=== PATIENT | female | born 1975 | race Caucasian/White ===

== ENCOUNTER 2020-07-16 10:10 | Outpatient (REF) | payer MEDICARE, SELFPAY ==
[2020-07-16 11:42] LABS: Alanine Aminotransferase 28 U/L (0-31); Anion Gap 14 (12-20); Aspartate Amino Transferase 23 U/L (5-31); Blood Urea Nitrogen 20 mg/dL (9-16); Calcium 8.2 mg/dL (8.4-10.2); Carbon Dioxide 24 mmol/L (22-29); Chloride 105 mmol/L (96-108); Cholesterol 197 mg/dL; Estimated Glomerular Filt Rate > 60; Glucose Fasting 100 mg/dL (60-99); HDL Cholesterol 59 mg/dL; LDL Cholesterol Calculated 121 mg/dl; Potassium 4.5 mmol/l (3.3-5.1); Sodium 138 mmol/L (135-145); Triglycerides 86 mg/dL
== END 2020-07-16 10:11 | disposition home or self-care (01) ==
LOC: HO.HMGCLDS 10:10
PROVIDERS: PCP Internal Medicine; Visit Provider Internal Medicine
DX: Z00.00 Encounter for general adult medical examination without abnormal findings (principal)
CPT/HCPCS: 80048; 80061; 84450; 84460

== ENCOUNTER 2020-07-23 14:45 | Outpatient (REF) | payer MEDICARE, MEDICAID, SELFPAY ==
[2020-07-29 18:16] LABS: HPV mRNA E6/E7 rflx Not Detected (Not Detected)
== END 2020-07-23 14:46 | disposition home or self-care (01) ==
LOC: HO.LNP 14:45
PROVIDERS: Visit Provider Internal Medicine
DX: I26.99 Other pulmonary embolism without acute cor pulmonale (principal)
CPT/HCPCS: 87624; 87625

== ENCOUNTER 2020-07-27 15:45 | Outpatient (REF) | payer MEDICARE, MEDICAID, SELFPAY | END 2020-07-27 15:46 | disposition home or self-care (01) | LOC: HO.LAB 15:45 | PROVIDERS: Visit Provider Internal Medicine | DX: Z01.419 Encounter for gynecological examination (general) (routine) without abnormal findings (principal) | CPT/HCPCS: 88142 ==

== ENCOUNTER 2021-07-22 09:44 | Outpatient (REF) | payer MEDICARE, MEDICAID, SELFPAY ==
--- NOTE | ~2021-07-22 | MM_ITS ---
EXAMINATION: MM SCREENING DIGITAL BREAST TOMOSYNTHESIS, BILATERAL CLINICAL INFORMATION: Screening. Asymptomatic. The lifetime risk of breast cancer based on the Tyrer-Cuzick Model is 7%. COMPARISON: Mammography: 02/13/2019, 01/25/2018 TECHNIQUE: Digital breast tomosynthesis is performed in both the craniocaudal and mediolateral oblique views along with computer-aided detection (CAD). Synthesized 2D images are generated from the tomosynthesis. FINDINGS: The breasts are heterogeneously dense, which may obscure small masses (ACR BI-RADS breast composition Category c). Parenchymal pattern is similar to prior studies. There is no interval mass or architectural. No abnormal calcifications. The axilla and skin contours are unremarkable. No significant changes. MM/MM tomosynthesis screening BI IMPRESSION: No mammographic evidence of malignancy. ASSESSMENT: BI-RADS 1: Negative RECOMMENDATION: Routine annual mammography screening. This patient's information was entered into a reminder system with a target due date for their next mammogram.
[2021-07-22 10:04] LABS: MANUAL DIFF FLAG NO
[2021-07-22 10:28] LABS: Basophils Absolute Auto 0.1 X10*3/uL (0.0-0.2); Basophils Percent Auto 0.7 % (0-2); Eosinophils Absolute Auto 0.2 X10*3/uL (0.0-0.4); Eosinophils Percent Auto 2.2 % (0-4); Hematocrit 38.1 % (37.0-47.0); Hemoglobin 12.9 g/dl (12.0-16.0); Imm Gran Abs Auto 0.03 X10*3/uL (0.00-0.03); Imm Gran Pct Auto 0.4 % (0.0-0.4); Lymphocytes Absolute Auto 1.5 X10*3/uL (1.2-4.9); Lymphocytes Percent Auto 21.6 % (20-40); Mean Corpuscular HGB Conc 33.9 g/dl (31.0-35.0); Mean Corpuscular Hemoglobin 31.1 pg (27.0-33.0); Mean Corpuscular Volume 91.8 fL (80.0-98.0); Monocytes Absolute Auto 0.5 X10*3/uL (0.1-1.2); Monocytes Percent Auto 6.9 % (2-11); Neutrophils Absolute Auto 4.7 x10*3/uL (2.0-8.3); Neutrophils Percent Auto 68.2 % (45-73); Platelet Count 280 X10*3/uL (160-400); Red Blood Count 4.15 X10*6/uL (4.20-5.50); White Blood Count 6.9 X10*3/uL (4.8-10.8)
[2021-07-22 10:54] LABS: Alanine Aminotransferase 18 U/L (0-31); Albumin Level 4.5 g/dL (3.5-5.0); Alkaline Phosphatase 65 U/L (39-117); Anion Gap 11 (12-20); Aspartate Amino Transferase 16 U/L (5-31); Bilirubin Total 0.3 mg/dL (0.0-1.0); Blood Urea Nitrogen 20 mg/dL (9-16); Calcium 9.1 mg/dL (8.4-10.2); Carbon Dioxide 24 mmol/L (22-29); Chloride 107 mmol/L (96-108); Cholesterol 222 mg/dL; Estimated Glomerular Filt Rate > 60; Glucose Random 110 mg/dL (60-115); HDL Cholesterol 52 mg/dL; LDL Cholesterol Calculated 136 mg/dl; Potassium 4.4 mmol/L (3.3-5.1); Sodium 138 mmol/L (135-145); Total Protein 7.1 g/dL (6.5-8.0); Triglycerides 174 mg/dL
[2021-07-22 11:14] LABS: Thyroid Stimulating Hormone 1.13 uIU/mL (0.32-4.0)
== END 2021-07-22 09:45 | disposition home or self-care (01) ==
LOC: HO.MAMMO 09:44
PROVIDERS: PCP Internal Medicine; Visit Provider Internal Medicine
DX: Z00.00 Encounter for general adult medical examination without abnormal findings (principal); Z12.31 Encounter for screening mammogram for malignant neoplasm of breast; J30.0 Vasomotor rhinitis; R07.89 Other chest pain; Z72.0 Tobacco use
CPT/HCPCS: 36415; 77063; 77067; 80053; 80061; 84443; 85025

== ENCOUNTER → 2021-10-17 13:17 | Outpatient (BNVA) | payer MEDICARE, MEDICAID, SELFPAY | PROVIDERS: PCP Internal Medicine; Visit Provider Internal Medicine Cardiovascular Disease ==

== ENCOUNTER 2022-03-09 11:26 | Outpatient (REF) | payer MEDICARE, MEDICAID, SELFPAY ==
[2022-03-09 12:02] LABS: COVID-19 Test Negative (Negative); IDNOW Serial# 08D9AD1C
== END 2022-03-09 11:27 | disposition home or self-care (01) ==
LOC: HO.LAB 11:26
PROVIDERS: Visit Provider Internal Medicine
DX: Z20.822 Contact with and (suspected) exposure to COVID-19 (principal)
CPT/HCPCS: 87635; C9803

== ENCOUNTER 2022-04-23 04:36 | Emergency (ER) | payer MEDICARE, MEDICAID, SELFPAY ==
[2022-04-23 04:54] VITALS: BMI 31.3
[2022-04-23] MEDS: LORazepam 1 MG TABLET 2 MG PO (05:12)
[2022-04-23] MEDS: OLANZapine 10 MG TABLET PO (05:13)
[2022-04-23 07:08] LABS: Appearance Urine CLOUDY; Color Urine YELLOW; Glucose Urine UA NEG (NEG); Leukocyte Esterase Urine NEG (NEG); Nitrite Urine NEG (NEG); PH 5.5 (5.0-8.0); Specific Gravity - Urine 1.025 (1.005-1.025); UACC Culture Trigger NO; Urine Blood 1+ (NEG); Urine Ketones 15 MG/DL (NEG); Urine Protein TRACE MG/DL (NEG-TRACE)
[2022-04-23 07:09] LABS: UPreg QC Valid YES; Urine Pregnancy NEGATIVE (NEGATIVE)
[2022-04-23 07:19] LABS: Amorphous Sediment Urine 1+ /LPF; Bacteria Urine 1+ /LPF; Mucus Urine TRACE /LPF; Squamous Epithelial Cell Urine 2+ /LPF; WBC Urine 0-2 /HPF (0-4)
[2022-04-23 07:20] LABS: Amphetamine Screen Urine Not Detected (Not Detect); Barbiturates, Urine Not Detected (Not Detect); Benzodiazepines Screen Urine Not Detected (Not Detect); Cannabinoid Screen Urine Not Detected (Not Detect); Cocaine Screen Urine POSITIVE (Not Detect); Fentanyl, urine Not Detected (Not Detect); Hyaline Casts Urine 0-2 /LPF; Opiate Screen Urine Not Detected (Not Detect); Phencyclidine Screen Urine Not Detected (Not Detect)
[2022-04-23 07:25] LABS: COVID-19 Test Negative (Negative)
--- NOTE | 2022-04-23 08:32 | PC.NURSE ---
Patient was tearful at the time arrival, inconsolable, non compliant with changeover, provider ordered Ativan 2 mg PO and Olanzapine 10 mg PO /administered at 0513 with positive effect, patient currently in bed appears sleeping, no distress observed/reported, compliant with change control manager, urine sample provided, [facility] referral completed/confirmed/pending ETA, med rec completed/confirmed/pending ETA, will continue to monitor.
--- NOTE | 2022-04-23 09:12 | ED_ITS ---
HPI - Psych General Chief Complaint: Psychiatric Symptoms Stated Complaint: SI Time Seen by Provider: 04/23/22 05:04 Source: patient Mode of arrival: ambulatory Limitations: no limitations History of Present Illness HPI Narrative: 46-year-old female who presents emergency department for evaluation of suicidal ideation, depression and emotional distress. Patient was extremely agitated and tearful on presentation and difficult to get a history from. The patient states that she was at a bar to meet her boyfriend and was drinking alcohol prior to the boyfriend arrival. Apparently she got in an argument with the boyfriend and states that she scratched his face became very upset. She states that she is very tired and she is tired of living. She told me that everybody was out to get her and that everybody was mean to her. She told me that she wanted to , but did not have a plan. The patient was initially seen by the triage nurse and then wanted to leave the emergency department after making suicidal statements. I was able to convince the patient to walk back to the psychiatric unit. The patient lives very tearful and continued to want to leave therefore she was medicated with Zyprexa 10 mg orally and Ativan 2 mg orally. MD complaint: suicidal ideation, feels depressed, anxiety and alcohol abuse Onset (ago): hour(s) (3) Duration: constant History of same: Yes Relieving factors: none Exacerbating factors: alcohol Associated psychiatric symptoms: depression, suicidal ideation, racing thoughts and delusions (Paranoid) Associated symptoms: denies other symptoms Treatments prior to arrival: none If self harm: admits thoughts of self harm Related Data Home Medications Medication Instructions Recorded Confirmed omeprazole 20 mg capsule,delayed 20 mg PO DAILY 07/23/20 04/23/22 release aripiprazole 5 mg tablet 1 tab PO DAILY 04/23/22 04/23/22 duloxetine 30 mg capsule,delayed 1 cap PO DAILY 04/23/22 04/23/22 release lorazepam 0.5 mg tablet 1 tab PO DAILY PRN anxiety 04/23/22 04/23/22 oxcarbazepine 600 mg tablet 1 tab PO BID 04/23/22 04/23/22 trazodone 100 mg tablet 1 tab PO BEDTIME 04/23/22 04/23/22 Previous Rx's Medication Instructions Recorded albuterol sulfate 90 mcg/actuation 2 puff inhalation Q6H PRN 12/21/20 aerosol inhaler (Ventolin HFA) shortness of breath or wheezing #8.5 grams Allergies Allergy/AdvReac Type Severity Reaction Status Date / Time No Known Allergies Allergy Verified 10/17/21 14:01 [facility] Past Medical History [facility] Narrative: Social history: The patient does smoke cigarettes. Patient does drink alcohol missed drinking alcohol this evening. She smokes 1 pack of cigarettes per day times many years. She states that she is currently not using drugs but has used crack cocaine in the past. Medical History Bipolar disorder GERD (gastroesophageal reflux disease) Mild intermittent asthma Obesity (BMI 30.0-34.9) Surgical History H/O tubal ligation Family History Family History Father No problems noted. Mother Parkinson disease Son No problems noted. Son No problems noted. Sister No problems noted. Brother No problems noted. Brother No problems noted. Brother No problems noted. Brother No problems noted. Brother No problems noted. Brother No problems noted. Maternal Aunt Diabetes mellitus Social History Social History Alcohol intake: current Physical Exam Vital Signs: Vital Signs: BMI result Body Mass Index 31.3 Const: Other: Patient is very emotional, she is tearful, she has very pressured speech, she appears to be intoxicated. HEENT: Head: Yes normal to inspection, Yes normocephalic and Yes atraumatic Ears: external ears normal General nose exam: Normal external nose present Face and sinus: Yes normal facial exam Mouth: Normal oral and palatal mucosa present Throat: Yes posterior oropharynx normal Eyes: General: appearance normal, both eyes and all related structures Pupils: Equal, round and reactive pupils present Neck: Neck: Yes normal visual inspection, Yes no lymphadenopathy, Yes trachea midline and Yes supple Chest: Chest palpation & inspection: normal inspection of the chest and normal palpation of entire chest wall Resp: Effort & Inspection: normal respiratory effort and able to speak in complete sentences Auscultation: clear to auscultation bilaterally Cardio: Rate: regular rate Rhythm: regular rhythm Heart sounds: S1 normal heart sound present, S2 normal heart sound present and no murmurs GI: Inspection: Yes normal to inspection Palpation (GI): Soft to palpation, nontender and no guarding Auscultation: normal bowel sounds : General: Yes no CVA tenderness Back/Spine/Pelvis: Back: no CVA tenderness Skin: General skin exam: no rashes or lesions noted Neuro: Cranial nerves: Yes CN's II-XII intact bilaterally and Yes Equal, round and reactive pupils present Cognition (Neuro): normal cognition Motor exam (neuro): 5/5 motor strength present throughout Extrem: General: Yes normal to inspection Psych: Appearance: grossly normal Affect: Labile affect present Attitude: Guarded attititude/behavior present Thought process: Racing thoughts present Thought content: Suicidality present Insight: Poor insight present (Psych) Judgement: Poor judgement present (Psych) Course Course Course Narrative: 46-year-old female who presents emergency department for evaluation of suicidal ideation, depression, paranoid ideation and she states she was drinking alcohol this evening and appears to be intoxicated. The patient did make suicidal statements therefore she was placed on a Section 12. The patient was also very agitated and was treated with Zyprexa 10 mg orally and Ativan 2 mg orally. I did order a CBC, CMP, ETOH level, COVID-19 urinalysis, urine test and urine drug screen. 0921: COVID-19 was negative. Urine drug screen was positive for cocaine. Urinalysis revealed 1+ blood, microscopic revealed 1-4 RBCs, 0-2 WBCs. test was negative. Patient has not had her blood drawn yet. The patient did have a good effect from the oral Zyprexa and Ativan and is resting comfortably. The patient will be turned over to my colleague, Dr. Paniagua. [facility] - Psych Lab Data Labs: Lab Results 04/23/22 04/23/22 04/23/22 Range/Units 06:56 06:56 06:56 Urine Color YELLOW Urine Appearance CLOUDY Urine pH 5.5 (5.0-8.0) Ur Specific [place] 1.025 (1.005-1.025) Urine Protein TRACE (NEG-TRACE) MG/DL Urine Glucose (UA) NEG (NEG) MG/DL Urine Ketones 15 (NEG) MG/DL Urine Blood 1+ H (NEG) Urine Nitrite NEG (NEG) Ur Leukocyte Esterase NEG (NEG) Urine RBC 1-4 (0) /HPF Urine WBC 0-2 (0-4) /HPF Ur Squamous Epith Cells 2+ /LPF Amorphous Sediment 1+ /LPF Urine Bacteria 1+ /LPF Hyaline Casts 0-2 /LPF Urine Mucus TRACE /LPF Urine Test NEGATIVE (NEGATIVE) Urine Opiates Screen Not Detected (Not Detect) Urine Fentanyl Screen Not Detected (Not Detect) Ur Barbiturates Screen Not Detected (Not Detect) Ur Phencyclidine Scrn Not Detected (Not Detect) Ur Amphetamines Screen Not Detected (Not Detect) U Benzodiazepines Scrn Not Detected (Not Detect) Urine Cocaine Screen POSITIVE H (Not Detect) U Marijuana (THC) Screen Not Detected (Not Detect) COVID-19 (PAMELA) (Negative) COVID-AddonTV 04/23/22 Range/Units 06:57 Urine Color Urine Appearance Urine pH (5.0-8.0) Ur Specific [place] (1.005-1.025) Urine Protein (NEG-TRACE) MG/DL Urine Glucose (UA) (NEG) MG/DL Urine Ketones (NEG) MG/DL Urine Blood (NEG) Urine Nitrite (NEG) Ur Leukocyte Esterase (NEG) Urine RBC (0) /HPF Urine WBC (0-4) /HPF Ur Squamous Epith Cells /LPF Amorphous Sediment /LPF Urine Bacteria /LPF Hyaline Casts /LPF Urine Mucus /LPF Urine Test (NEGATIVE) Urine Opiates Screen (Not Detect) Urine Fentanyl Screen (Not Detect) Ur Barbiturates Screen (Not Detect) Ur Phencyclidine Scrn (Not Detect) Ur Amphetamines Screen (Not Detect) U Benzodiazepines Scrn (Not Detect) Urine Cocaine Screen (Not Detect) U Marijuana (THC) Screen (Not Detect) COVID-19 (PAMELA) Negative (Negative) COVID-AddonTV See Note Discharge Plan Discharge Clinical Impression: Suicidal ideation, Alcohol intoxication, Cocaine use Patient Disposition: Still a Patient Prescriptions: No Action albuterol sulfate [Ventolin HFA] 90 mcg/actuation HFA aerosol inhaler 2 puff inhalation Q6H PRN (Reason: shortness of breath or wheezing) Qty: 8.5 2RF lorazepam 0.5 mg tablet 1 tab PO DAILY PRN (Reason: anxiety) trazodone 100 mg tablet 1 tab PO BEDTIME oxcarbazepine 600 mg tablet 1 tab PO BID aripiprazole 5 mg tablet 1 tab PO DAILY duloxetine 30 mg capsule,delayed release(DR/EC) 1 cap PO DAILY omeprazole 20 mg capsule,delayed release(DR/EC) 20 mg PO DAILY
[2022-04-23 11:41] LABS: Hematocrit 40.2 % (37.0-47.0); Hemoglobin 13.2 g/dl (12.0-16.0); Mean Corpuscular HGB Conc 32.8 g/dl (31.0-35.0); Mean Corpuscular Hemoglobin 30.3 pg (27.0-33.0); Mean Corpuscular Volume 92.4 fL (80.0-98.0); Mean Platelet Volume 9.5 fL (9.4-12.3); Platelet Count 257 X10*3/uL (160-400); Red Blood Count 4.35 X10*6/uL (4.20-5.50); Red Cell Distribution Width 12.6 % (11.0-16.0)
[2022-04-23 11:42] LABS: Basophils Absolute Auto 0.1 X10*3/uL (0.0-0.2); Eosinophils Absolute Auto 0.4 X10*3/uL (0.0-0.4); Eosinophils Percent Auto 4.9 % (0-4); Hematocrit 39.8 % (37.0-47.0); Hemoglobin 13.1 g/dl (12.0-16.0); Imm Gran Abs Auto 0.03 X10*3/uL (0.00-0.03); Imm Gran Pct Auto 0.4 % (0.0-0.4); Lymphocytes Absolute Auto 2.2 X10*3/uL (1.2-4.9); Lymphocytes Percent Auto 28.2 % (20-40); MANUAL DIFF FLAG NO; Mean Corpuscular HGB Conc 32.9 g/dl (31.0-35.0); Mean Corpuscular Hemoglobin 30.8 pg (27.0-33.0); Mean Corpuscular Volume 93.6 fL (80.0-98.0); Mean Platelet Volume 9.5 fL (9.4-12.3); Monocytes Absolute Auto 0.6 X10*3/uL (0.1-1.2); Monocytes Percent Auto 7.5 % (2-11); Neutrophils Absolute Auto 4.4 x10*3/uL (2.0-8.3); Platelet Count 267 X10*3/uL (160-400); Red Blood Count 4.25 X10*6/uL (4.20-5.50); Red Cell Distribution Width 12.7 % (11.0-16.0); White Blood Count 7.6 X10*3/uL (4.8-10.8)
[2022-04-23 11:52] LABS: Ethanol 92 mg/dL
[2022-04-23 11:58] LABS: Alanine Aminotransferase 128 U/L (0-31); Albumin Level 4.5 g/dL (3.5-5.0); Alkaline Phosphatase 78 U/L (39-117); Anion Gap 17 (12-20); Aspartate Amino Transferase 185 U/L (5-31); Bilirubin Total 0.3 mg/dL (0.0-1.0); Blood Urea Nitrogen 10 mg/dL (9-16); Calcium 8.8 mg/dL (8.4-10.2); Carbon Dioxide 24 mmol/L (22-29); Chloride 103 mmol/L (96-108); Creatinine Clr Calc Pharmacy 98.3; Estimated Glomerular Filt Rate > 60; Glucose Random 63 mg/dL (60-115); Potassium 4.1 mmol/L (3.3-5.1); Sodium 140 mmol/L (135-145); Total Protein 7.4 g/dL (6.5-8.0)
[2022-04-23 14:26] VITALS: BP 111/59; PULSE 92; RESP 16; TEMP 36.8; O2SAT 97
[2022-04-23] MEDS: LORazepam 0.5 MG TABLET PO (15:48)
[2022-04-23] MEDS: DULoxetine HCl 30 MG CAPSULE.DR PO (15:49)
[2022-04-23] MEDS: ARIPiprazole 5 MG TABLET PO (15:50)
--- NOTE | 2022-04-23 16:06 | MHC.CARE ---
CARE team met with pt at the request of the ED attending physician for a 46 year old female who arrived to the ED early this morning under the influence, agitated, and endorsing passive suicidal ideation secondary to interpersonal stressors stemming from a bad night out at the bar. Pt had a BAL of 92 and tested positive for cocaine after arriving, and was heavily medicated this morning due to her level of agitation. [facility] attempted to meet with her for evaluation however she was not able to be assessed at that time due to her level of sedation from the medications. Pt was seen in the milieu of the [facility]. She was alert and oriented, appeared older than her stated age, and engaged easily with this typewriter operator automatic. She denied experiencing any thoughts of suicide and reported that she had been upset the night before because she thought that her sister had tried to kiss her boyfriend, whom she has been with for 13 years. She shared that she knows that the alcohol was a big reason why she became so upset and that she came to the hospital because she wanted help, specifically that she felt that she needed someone to take care of her at that time. She reported that she lives with her boyfriend and that she wants to go home to their birds and her houseplants. She has a therapy appointment this 04/27/22 and her an appointment with her psychiatrist in May. Recommendation is for discharge home and follow up with her outpatient providers. Yasmani Paniagua MD is in agreement with plan of care.
== END 2022-04-23 16:20 | disposition home or self-care (01) ==
LOC: HO.ED 16:13
PROVIDERS: Emergency Provider Emergency Medicine Emergency Medical Services
DX: R45.851 Suicidal ideations (principal); F33.1 Major depressive disorder, recurrent, moderate; F10.129 Alcohol abuse with intoxication, unspecified; Y90.8 Blood alcohol level of 240 mg/100 ml or more; F14.10 Cocaine abuse, uncomplicated; Z79.899 Other long term (current) drug therapy; Z20.822 Contact with and (suspected) exposure to COVID-19
CPT/HCPCS: 36415; 80053; 80307; 81001; 81025; 82077; 85025; 85027; 87635; 99284

== ENCOUNTER 2022-08-08 13:58 | Outpatient (REF) | payer MEDICARE, MEDICAID, SELFPAY ==
[2022-08-08 14:20] LABS: MANUAL DIFF FLAG NO
[2022-08-08 14:46] LABS: Basophils Percent Auto 0.6 % (0-2); Eosinophils Absolute Auto 0.2 X10*3/uL (0.0-0.4); Eosinophils Percent Auto 2.5 % (0-4); Hematocrit 37.6 % (37.0-47.0); Hemoglobin 12.3 g/dl (12.0-16.0); Imm Gran Abs Auto 0.02 X10*3/uL (0.00-0.03); Imm Gran Pct Auto 0.3 % (0.0-0.4); Lymphocytes Absolute Auto 1.4 X10*3/uL (1.2-4.9); Lymphocytes Percent Auto 20.2 % (20-40); Mean Corpuscular HGB Conc 32.7 g/dl (31.0-35.0); Mean Corpuscular Hemoglobin 29.9 pg (27.0-33.0); Mean Corpuscular Volume 91.5 fL (80.0-98.0); Mean Platelet Volume 10.3 fL (9.4-12.3); Monocytes Absolute Auto 0.5 X10*3/uL (0.1-1.2); Monocytes Percent Auto 8.1 % (2-11); Neutrophils Absolute Auto 4.6 x10*3/uL (2.0-8.3); Neutrophils Percent Auto 68.3 % (45-73); Platelet Count 280 X10*3/uL (160-400); Red Blood Count 4.11 X10*6/uL (4.20-5.50); Red Cell Distribution Width 11.8 % (11.0-16.0); White Blood Count 6.7 X10*3/uL (4.8-10.8)
[2022-08-08 15:54] LABS: Alanine Aminotransferase 23 U/L (0-31); Albumin Level 4.3 g/dL (3.5-5.0); Alkaline Phosphatase 78 U/L (39-117); Anion Gap 13 (12-20); Aspartate Amino Transferase 22 U/L (5-31); Bilirubin Total 0.3 mg/dL (0.0-1.0); Blood Urea Nitrogen 10 mg/dL (9-16); Calcium 9.8 mg/dL (8.4-10.2); Carbon Dioxide 23 mmol/L (22-29); Chloride 106 mmol/L (96-108); Cholesterol 206 mg/dL; Estimated Glomerular Filt Rate > 60; Glucose Random 89 mg/dL (60-115); HDL Cholesterol 63 mg/dL; LDL Cholesterol Calculated 98 mg/dl; Potassium 4.3 mmol/L (3.3-5.1); Sodium 138 mmol/L (135-145); Thyroid Stimulating Hormone 1.43 uIU/mL (0.32-4.0); Total Protein 6.9 g/dL (6.5-8.0); Triglycerides 226 mg/dL
== END 2022-08-08 13:59 | disposition home or self-care (01) ==
LOC: HO.LAB 13:58
PROVIDERS: PCP Internal Medicine; Visit Provider Internal Medicine
DX: Z00.00 Encounter for general adult medical examination without abnormal findings (principal); F20.1 Disorganized schizophrenia; K21.9 Gastro-esophageal reflux disease without esophagitis; L65.8 Other specified nonscarring hair loss; Z72.0 Tobacco use
CPT/HCPCS: 36415; 80053; 80061; 84443; 85025

== ENCOUNTER 2022-08-21 13:49 | Outpatient (REF) | payer MEDICARE, MEDICAID, SELFPAY ==
[2022-08-21 14:31] LABS: COVID-19 Test Negative (Negative); IDNOW Serial# 55D5AD1C
== END 2022-08-21 13:50 | disposition home or self-care (01) ==
LOC: HO.LAB 13:49
PROVIDERS: Visit Provider Internal Medicine
DX: Z20.822 Contact with and (suspected) exposure to COVID-19 (principal)
CPT/HCPCS: 87635; C9803

== ENCOUNTER 2022-09-29 13:55 | Outpatient (REF) | payer MEDICARE, MEDICAID, SELFPAY ==
--- NOTE | ~2022-09-29 | MM_ITS ---
EXAMINATION: MM SCREENING DIGITAL BREAST TOMOSYNTHESIS, BILATERAL CLINICAL INFORMATION: Screening. Asymptomatic. The lifetime risk of breast cancer based on the Tyrer-Cuzick Model is 8%. COMPARISON: Mammography: 07/22/2021, 02/13/2019, 01/25/2018 TECHNIQUE: Digital breast tomosynthesis is performed in both the craniocaudal and mediolateral oblique views along with computer-aided detection (CAD). Synthesized 2D images are generated from the tomosynthesis. FINDINGS: The breasts are heterogeneously dense, which may obscure small masses (ACR BI-RADS breast composition Category c). Parenchymal pattern is similar to prior studies. There is no developing density or architectural abnormality. There are no significant masses, abnormal calcifications, or other abnormalities. The axilla and skin contours are unremarkable. No significant changes. MM/MM tomosynthesis screening BI IMPRESSION: No mammographic evidence of malignancy. ASSESSMENT: BI-RADS 1: Negative RECOMMENDATION: Routine annual mammography screening. This patient's information was entered into a reminder system with a target due date for their next mammogram.
== END 2022-09-29 13:56 | disposition home or self-care (01) ==
LOC: HO.MAMMO 13:55
PROVIDERS: PCP Internal Medicine; Visit Provider Internal Medicine
DX: Z12.31 Encounter for screening mammogram for malignant neoplasm of breast (principal)
CPT/HCPCS: 77063; 77067

== ENCOUNTER 2022-12-21 11:24 | Outpatient (REF) | payer OTHER, MEDICAID, SELFPAY ==
[2022-12-21 11:44] LABS: MANUAL DIFF FLAG NO
[2022-12-21 12:23] LABS: Basophils Absolute Auto 0.1 X10*3/uL (0.0-0.2); Basophils Percent Auto 0.7 % (0-2); Eosinophils Absolute Auto 0.2 X10*3/uL (0.0-0.4); Eosinophils Percent Auto 2.1 % (0-4); Hematocrit 39.9 % (37.0-47.0); Hemoglobin 13.1 g/dl (12.0-16.0); Imm Gran Abs Auto 0.05 X10*3/uL (0.00-0.03); Imm Gran Pct Auto 0.7 % (0.0-0.4); Lymphocytes Absolute Auto 1.4 X10*3/uL (1.2-4.9); Lymphocytes Percent Auto 20.3 % (20-40); Mean Corpuscular HGB Conc 32.8 g/dl (31.0-35.0); Mean Corpuscular Hemoglobin 29.9 pg (27.0-33.0); Mean Corpuscular Volume 91.1 fL (80.0-98.0); Monocytes Absolute Auto 0.6 X10*3/uL (0.1-1.2); Monocytes Percent Auto 8.8 % (2-11); Neutrophils Absolute Auto 4.8 x10*3/uL (2.0-8.3); Neutrophils Percent Auto 67.4 % (45-73); Platelet Count 283 X10*3/uL (160-400); Red Blood Count 4.38 X10*6/uL (4.20-5.50); Red Cell Distribution Width 12.3 % (11.0-16.0); White Blood Count 7.1 X10*3/uL (4.8-10.8)
[2022-12-21 13:02] LABS: Cholesterol 215 mg/dL; HDL Cholesterol 61 mg/dL; LDL Cholesterol Calculated 125 mg/dl; Triglycerides 147 mg/dL
[2022-12-21 13:19] LABS: Thyroid Stimulating Hormone 1.79 uIU/mL (0.32-4.0)
== END 2022-12-21 11:25 | disposition home or self-care (01) ==
LOC: HO.LAB 11:24
PROVIDERS: PCP Internal Medicine; Visit Provider Internal Medicine
DX: Z00.00 Encounter for general adult medical examination without abnormal findings (principal); F20.1 Disorganized schizophrenia; K21.9 Gastro-esophageal reflux disease without esophagitis; L65.8 Other specified nonscarring hair loss; Z72.0 Tobacco use
CPT/HCPCS: 36415; 80061; 84443; 85025

== ENCOUNTER 2023-08-02 14:19 | Outpatient (REF) | payer OTHER, MEDICAID, SELFPAY ==
[2023-08-02 14:33] LABS: MANUAL DIFF FLAG NO
[2023-08-02 14:50] LABS: Basophils Absolute Auto 0.1 X10*3/uL (0.0-0.2); Eosinophils Absolute Auto 0.2 X10*3/uL (0.0-0.4); Hematocrit 40.8 % (37.0-47.0); Hemoglobin 13.2 g/dl (12.0-16.0); Imm Gran Abs Auto 0.04 X10*3/uL (0.00-0.03); Imm Gran Pct Auto 0.7 % (0.0-0.4); Lymphocytes Absolute Auto 1.2 X10*3/uL (1.2-4.9); Lymphocytes Percent Auto 20.5 % (20-40); Mean Corpuscular HGB Conc 32.4 g/dl (31.0-35.0); Mean Corpuscular Hemoglobin 30.8 pg (27.0-33.0); Mean Corpuscular Volume 95.3 fL (80.0-98.0); Monocytes Absolute Auto 0.5 X10*3/uL (0.1-1.2); Monocytes Percent Auto 8.4 % (2-11); Neutrophils Percent Auto 66.4 % (45-73); Platelet Count 254 X10*3/uL (160-400); Red Blood Count 4.28 X10*6/uL (4.20-5.50); Red Cell Distribution Width 12.4 % (11.0-16.0)
[2023-08-02 15:10] LABS: Alanine Aminotransferase 209 U/L (0-31); Albumin Level 4.4 g/dL (3.5-5.0); Alkaline Phosphatase 111 U/L (39-117); Anion Gap 11 (12-20); Aspartate Amino Transferase 113 U/L (5-31); Bilirubin Total 0.3 mg/dL (0.0-1.0); Blood Urea Nitrogen 10 mg/dL (9-16); Calcium 9.6 mg/dL (8.4-10.2); Carbon Dioxide 28 mmol/L (22-29); Chloride 105 mmol/L (96-108); Cholesterol 225 mg/dL (<200); Estimated Glomerular Filt Rate > 60; Glucose Random 111 mg/dL (60-115); HDL Cholesterol 68 mg/dL (>40); LDL Cholesterol Calculated 128 mg/dL (<100); Potassium 4.1 mmol/L (3.3-5.1); Sodium 140 mmol/L (135-145); Total Protein 7.5 g/dL (6.5-8.0); Triglycerides 145 mg/dL (<150)
== END 2023-08-02 14:20 | disposition home or self-care (01) ==
LOC: HO.LAB 14:19
PROVIDERS: PCP Internal Medicine; Visit Provider Internal Medicine
DX: Z00.00 Encounter for general adult medical examination without abnormal findings (principal); R13.10 Dysphagia, unspecified; R10.13 Epigastric pain; I10 Essential (primary) hypertension; F10.19 Alcohol abuse with unspecified alcohol-induced disorder; E78.2 Mixed hyperlipidemia; Z72.0 Tobacco use
CPT/HCPCS: 36415; 80053; 80061; 85025

== ENCOUNTER 2023-11-01 12:30 | Outpatient (REF) | payer OTHER, MEDICAID, SELFPAY | END 2023-11-01 12:31 | disposition home or self-care (01) | LOC: HO.MAMMO 12:30 | PROVIDERS: PCP Internal Medicine; Visit Provider Internal Medicine | DX: Z12.31 Encounter for screening mammogram for malignant neoplasm of breast (principal) | CPT/HCPCS: 77063; 77067 ==

== ENCOUNTER → 2023-11-01 13:00 | Outpatient (BNV) | payer OTHER, MEDICAID, SELFPAY | PROVIDERS: PCP Internal Medicine; Visit Provider Radiology Diagnostic Radiology | DX: Z12.31 Encounter for screening mammogram for malignant neoplasm of breast (principal) | CPT/HCPCS: 77063; 77067 ==

== ENCOUNTER 2024-01-21 14:14 | Emergency (ER) | payer OTHER, MEDICAID, SELFPAY ==
--- NOTE | 2024-01-21 | ECG_ITS ---
Test Reason : CHEST TIARA Blood Pressure : / mmHG Vent. Rate : 071 BPM Atrial Rate : 071 BPM P-R Int : 120 ms QRS Dur : 082 ms QT Int : 394 ms P-R-T Axes : 032 038 027 degrees QTc Int : 428 ms Normal sinus rhythm Cannot rule out Anterior infarct (cited on or before 28-FEB-2019) Abnormal ECG When compared with ECG of 28-FEB-2019 11:07, Questionable change in initial forces of Anterior leads Referred By: Generic ED Physician Electronically Signed By:Livan Mills
== END 2024-01-21 14:49 | disposition left against medical advice (07) ==
PROVIDERS: Emergency Provider Emergency Medicine; PCP Internal Medicine
DX: R07.9 Chest pain, unspecified (principal)
CPT/HCPCS: 93005; 99282; 99283

== ENCOUNTER → 2024-01-21 14:20 | Outpatient (BNV) | payer OTHER, MEDICAID, SELFPAY | PROVIDERS: Emergency Provider Emergency Medicine; PCP Internal Medicine; Visit Provider Internal Medicine Cardiovascular Disease | DX: R07.9 Chest pain, unspecified (principal) | CPT/HCPCS: 93010 ==

== ENCOUNTER 2024-01-30 12:16 | Outpatient (REF) | payer OTHER, SELFPAY ==
--- NOTE | ~2024-01-30 | US_ITS ---
EXAMINATION: US COMPLETE ABDOMEN WITH LIVER ELASTOGRAPHY CLINICAL INFORMATION: Elevated liver function test; alcoholic liver damage. COMPARISON: CT abdomen and pelvis dated 05/18/2015; abdominal ultrasound dated 03/05/2009. TECHNIQUE: Real-time imaging of the abdominal viscera. Noninvasive ultrasound liver fibrosis assessment is performed using Francisco ElastPQ point quantification shear wave elastography (2D-SWE) with a C5-2 MHz transducer. Multiple elastography samples are obtained. FINDINGS: PANCREAS: Normal. The visualized pancreatic head and body are normal in appearance. The remainder of the pancreas is obscured from visualization by the overlying bowel gas. ABDOMINAL AORTA: The proximal, middle, and distal aortic segments are normal in caliber. INFERIOR VENA CAVA: Visualized portions are normal. LIVER: The liver demonstrates normal size, contour and increased echogenicity. No focal lesion or intrahepatic biliary duct dilatation. The right lobe measures 15.5 cm in length. The left lobe measures 12.1 cm in length. Portal flow is towards the liver (hepatopetal). Shear wave liver elastography median stiffness is 1.47 m/s (reference: normal median stiffness is 1.3 m/s or less). IQR/median stiffness to assess sampling precision is 0.16 (reference: good quality data set is IQR/median stiffness of 0.15 or less). GALLBLADDER: Normal. The gallbladder is physiologically distended without evidence of stones, sludge, polyps, wall thickening or pericholecystic fluid. COMMON BILE DUCT: Normal in caliber measuring 0.5 cm in diameter. RIGHT KIDNEY: Normal. No hydronephrosis. No renal calculi or focal parenchymal lesions. The kidney measures 9.7 cm in maximum dimension. LEFT KIDNEY: Normal. No hydronephrosis. No renal calculi or focal parenchymal lesions. The kidney measures 9.2 cm in maximum dimension. SPLEEN: Normal. The spleen measures 8.9 cm in maximum dimension. FREE FLUID: None. US/US abdomen comp w elastography IMPRESSION: 1. There is generalized increase in hepatic echotexture, consistent with fatty infiltration or hepatocellular disease. Please correlate clinically. No focal hepatic mass or intrahepatic biliary dilatation is seen. 2. Liver elastography: Although measurements appear to rule out compensated advanced chronic liver disease, there is statistical variability of the sampling which decreases accuracy. REFERENCE: Society of Radiologists in Ultrasound Liver Stiffness Thresholds (2020): LIVER STIFFNESS THRESHOLDS: *Liver Stiffness equal or less than 1.3 m/s: High probability of being normal. *Liver Stiffness less than 1.7 m/s: In the absence of other known clinical signs, rules out compensated advanced chronic liver disease. *Liver Stiffness 1.7-2.1 m/s: Suggestive of compensated advanced chronic liver disease but need further test for confirmation. *Liver Stiffness over 2.1 m/s: Rules in compensated advanced chronic liver disease. *Liver Stiffness over 2.4 m/s: Suggestive of clinically significant portal hypertension. QUALITY OF DATA SET: *IQR/Median value equal or less than 0.15 implies a quality data set. *IQR/Median value over 0.15 implies a poor quality data set. SIGNIFICANT CHANGE FROM PRIOR EXAM: Significant change if liver stiffness measurement is 10% or greater from prior exam. OTHER CONSIDERATIONS: The stage of liver fibrosis may be overestimated in the setting of acute hepatitis, liver inflammation, elevated liver function tests, hepatic vascular congestion, obstructive cholestasis, non-fasting state, and infiltrative diseases such as amyloidosis and lymphoma. In some patients with NAFLD, the liver stiffness thresholds for compensated advanced chronic liver disease may be lower. In causes other than viral hepatitis and NAFLD, liver stiffness thresholds are not well established.
[2024-01-30 13:47] LABS: MANUAL DIFF FLAG NO
[2024-01-30 13:59] LABS: Basophils Percent Auto 0.7 % (0-2); Eosinophils Absolute Auto 0.1 X10*3/uL (0.0-0.4); Eosinophils Percent Auto 2.2 % (0-4); Hematocrit 39.4 % (37.0-47.0); Hemoglobin 13.3 g/dl (12.0-16.0); Imm Gran Abs Auto 0.01 X10*3/uL (0.00-0.03); Imm Gran Pct Auto 0.2 % (0.0-0.4); Lymphocytes Absolute Auto 0.9 X10*3/uL (1.2-4.9); Lymphocytes Percent Auto 17.1 % (20-40); Mean Corpuscular HGB Conc 33.8 g/dl (31.0-35.0); Mean Corpuscular Hemoglobin 31.3 pg (27.0-33.0); Mean Corpuscular Volume 92.7 fL (80.0-98.0); Mean Platelet Volume 9.9 fL (9.4-12.3); Monocytes Absolute Auto 0.5 X10*3/uL (0.1-1.2); Monocytes Percent Auto 8.9 % (2-11); Neutrophils Absolute Auto 3.9 x10*3/uL (2.0-8.3); Neutrophils Percent Auto 70.9 % (45-73); Platelet Count 240 X10*3/uL (160-400); Red Blood Count 4.25 X10*6/uL (4.20-5.50); Red Cell Distribution Width 12.4 % (11.0-16.0); White Blood Count 5.5 X10*3/uL (4.8-10.8)
[2024-01-30 14:06] LABS: INTERNATIONAL NORM RATIO 0.9 (0.9-1.1); Prothrombin Time 10.4 SEC (11.1-13.3)
[2024-01-30 14:20] LABS: Alanine Aminotransferase 79 U/L (0-31); Albumin Level 4.3 g/dL (3.5-5.0); Alkaline Phosphatase 92 U/L (39-117); Aspartate Amino Transferase 38 U/L (5-31); Bilirubin Direct 0.1 mg/dL (0.0-0.5); Bilirubin Total 0.4 mg/dL (0.0-1.0); Total Protein 7.4 g/dL (6.5-8.0)
[2024-01-31 08:07] LABS: HBS Num1 14.14 mIU/mL (0-7.99); HBc Num1 5.18 S/CO (0.00-0.79); HBsAGNum1 0.27 S/CO (0.00-0.99); Hepatitis B Surface Antigen Negative (Negative); ~HepC Num1 0.05 S/CO (0.00-0.79); ~Hepatitis B Surface Antibody REACTIVE (Nonreactive); ~Hepatitis C Antibody Nonreactive (Nonreactive)
[2024-01-31 09:11] LABS: HBc Num2 5.22 S/CO; HBc Num3 5.32 S/CO; Hepatitis B Core Antibody Reactive (Nonreactive)
[2024-01-31 12:28] LABS: Alpha Fetoprotein 3.8 ng/mL
[2024-02-12 17:39] LABS: FIB-ALT 61 U/L (6-29); FIB-Alpha-2-Macroglobulin 158 mg/dL (106-279); FIB-Apolipoprotein A1 213 mg/dL (101-198); FIB-GGT 44 U/L (3-55); FIB-Haptoglobin 135 mg/dL (43-212); FIB-Total Bilirubin 0.3 mg/dL (0.2-1.2); Liver Fibrosis Score 0.04; Liver Fibrosis Stage F0; Nec Inflam Act Grade A0-A1; Nec Inflam Act Score 0.28
== END 2024-01-30 12:17 | disposition home or self-care (01) ==
LOC: HO.US 12:16
PROVIDERS: PCP Internal Medicine; Visit Provider Internal Medicine
DX: K70.9 Alcoholic liver disease, unspecified (principal); R79.89 Other specified abnormal findings of blood chemistry
CPT/HCPCS: 36415; 76700; 76981; 80076; 81596; 82105; 85025; 85610; 86704; 86706; 86803; 87340

== ENCOUNTER 2024-05-31 01:10 | Emergency (ER) | payer MEDICARE, MEDICAID, SELFPAY ==
--- NOTE | 2024-05-31 | ECG_ITS ---
Test Reason : chest pain Blood Pressure : / mmHG Vent. Rate : 065 BPM Atrial Rate : 065 BPM P-R Int : 122 ms QRS Dur : 082 ms QT Int : 396 ms P-R-T Axes : 030 050 033 degrees QTc Int : 411 ms Normal sinus rhythm Low voltage QRS Borderline ECG When compared with ECG of 21-JAN-2024 14:20, No significant change was found Referred By: Generic ED Physician Electronically Signed By:EDILBERTO CUNNINGHAM
--- NOTE | ~2024-05-31 | XR_ITS ---
EXAMINATION: XR CHEST CLINICAL INFORMATION: Dyspnea COMPARISON: 02/28/2019 TECHNIQUE: Frontal view of the chest was obtained. FINDINGS: The lungs are clear with no focal consolidation. No evidence of pneumothorax, pulmonary edema, or pleural effusions. The cardiomediastinal contour is unremarkable. No acute osseous findings are seen. XR/XR chest 1V IMPRESSION: No acute cardiopulmonary findings. Electronically signed by: Vinayak Olea MD 05/31/2024 02:06 AM EDT
[2024-05-31 01:22] VITALS: BP 118/77; PULSE 89; RESP 18; TEMP 36.8; O2SAT 97; BMI 35.2
[2024-05-31 02:19] LABS: Influenza A PCR NEGATIVE (Negative); Influenza B PCR NEGATIVE (Negative); Resp Syncy Virus RNA Qual PCR NEGATIVE (Negative); SARS COV2 PCR INHOUSE NEGATIVE (Negative)
== END 2024-05-31 04:35 | disposition left against medical advice (07) ==
LOC: HO.ED 04:35
PROVIDERS: Emergency Provider Emergency Medicine; PCP Internal Medicine
DX: J45.909 Unspecified asthma, uncomplicated (principal); Z03.818 Encounter for observation for suspected exposure to other biological agents ruled out; Z53.21 Procedure and treatment not carried out due to patient leaving prior to being seen by health care provider
CPT/HCPCS: 0241U; 71045; 93005; 99281; 99283

== ENCOUNTER 2024-12-12 13:57 | Outpatient (REF) | payer MEDICARE, MEDICAID, SELFPAY | END 2024-12-12 13:58 | disposition home or self-care (01) | LOC: HO.MAMMO 13:57 | PROVIDERS: PCP Internal Medicine; Visit Provider Internal Medicine | DX: Z12.31 Encounter for screening mammogram for malignant neoplasm of breast (principal) | CPT/HCPCS: 77063; 77067 ==

== ENCOUNTER → 2024-12-12 14:15 | Outpatient (BNV) | payer MEDICARE, MEDICAID, SELFPAY | PROVIDERS: PCP Internal Medicine; Visit Provider Internal Medicine | DX: Z12.31 Encounter for screening mammogram for malignant neoplasm of breast (principal) | CPT/HCPCS: 77063; 77067 ==

== ENCOUNTER 2024-12-25 12:49 | Outpatient (REF) | payer MEDICARE, MEDICAID, SELFPAY ==
[2024-12-25 13:00] LABS: MANUAL DIFF FLAG NO
[2024-12-25 13:12] LABS: Basophils Absolute Auto 0.1 X10*3/uL (0.0-0.2); Basophils Percent Auto 0.9 % (0-2); Eosinophils Absolute Auto 0.1 X10*3/uL (0.0-0.4); Eosinophils Percent Auto 2.5 % (0-4); Hematocrit 38.7 % (37.0-47.0); Hemoglobin 12.7 g/dl (12.0-16.0); Imm Gran Abs Auto 0.02 X10*3/uL (0.00-0.03); Imm Gran Pct Auto 0.4 % (0.0-0.4); Lymphocytes Absolute Auto 1.4 X10*3/uL (1.2-4.9); Lymphocytes Percent Auto 25.9 % (20-40); Mean Corpuscular HGB Conc 32.8 g/dl (31.0-35.0); Mean Corpuscular Hemoglobin 30.1 pg (27.0-33.0); Mean Corpuscular Volume 91.7 fL (80.0-98.0); Mean Platelet Volume 9.8 fL (9.4-12.3); Monocytes Absolute Auto 0.6 X10*3/uL (0.1-1.2); Monocytes Percent Auto 10.7 % (2-11); Neutrophils Absolute Auto 3.3 x10*3/uL (2.0-8.3); Neutrophils Percent Auto 59.6 % (45-73); Platelet Count 285 X10*3/uL (160-400); Red Blood Count 4.22 X10*6/uL (4.20-5.50); Red Cell Distribution Width 11.6 % (11.0-16.0); White Blood Count 5.5 X10*3/uL (4.8-10.8)
[2024-12-25 14:05] LABS: Alanine Aminotransferase 22 U/L (0-31); Albumin Level 4.3 g/dL (3.5-5.0); Alkaline Phosphatase 90 U/L (39-117); Anion Gap 12 (12-20); Aspartate Amino Transferase 22 U/L (5-31); Bilirubin Total 0.3 mg/dL (0.0-1.0); Blood Urea Nitrogen 17 mg/dL (9-16); Calcium 9.6 mg/dL (8.4-10.2); Carbon Dioxide 25 mmol/L (22-29); Chloride 107 mmol/L (96-108); Cholesterol 203 mg/dL (<200); Estimated Glomerular Filt Rate > 60; Glucose Random 134 mg/dL (60-115); HDL Cholesterol 52 mg/dL (>40); LDL Cholesterol Calculated 121 mg/dL (<100); Sodium 140 mmol/L (135-145); Total Protein 7.2 g/dL (6.5-8.0); Triglycerides 152 mg/dL (<150)
[2024-12-25 14:07] LABS: Thyroid Stimulating Hormone 1.72 uIU/mL (0.32-4.0)
--- OUTSIDE RECORDS SUMMARY | 2024-12-25 15:23 | XMS_ITS | Clinical Summary ---
Author Organization [employer] Address [address] [place] [address] [address] [place] [address] Care Team Providers Care Customer Account Coordinator Name Role Phone Unavailable Primary Care Provider Unavailabl e Allergies No known active allergies Medications No known medications Social History Tobacco Use Types Packs/Day Years Used Date Smoking Tobacco: Former Cigarettes Passive Smoke Exposure: Never Smokeless Tobacco: Former Tobacco Cessation:Counseling Given: No Alcohol Use Standard Drinks/Week Comments Yes 0 (1 standard drink = 0.6 oz pur e alcohol) Comments Unknown Sex and Gender Information Value Date Recorded Sex Assigned at Female 07/17/2022 10:15 AM EDT Legal Sex Female 10:15 AM EDT Gender Identity Choose not to disclose 10:15 AM EDT Sexual Orientation Choose not to disclose 2021 10:15 AM EDT Last Filed Vital Signs Vital Sign Reading Time Taken Comments Blood Pressure 124/78 05/28/2023 2:55 PM EDT Pulse - - Temperature - - Respiratory Rate - - Oxygen Saturation - - Inhaled Oxygen Concentration - - Weight - - Height - - Body Mass Index - - Plan of Treatment Health Maintenance Due Date Last Done Comments CT Colonography 1977 Colonoscopy 1977 Colorectal Cancer Screening 1977 Depression Screening 1977 FIT DNA/Cologuard 1977 FIT 1977 FOBT 1977 HIV Screening 1977 SDOH Screening 1977 Sigmoidoscopy 1977 Alcohol/Substance Use Screening 1989 Family Planning (PISQ) 1992 Hepatitis C Screening 1995 Hepatitis B Vaccines (1 of 3 - 19+ 3-dose series) 1996 Pap Smear 1998 Cervical Cancer Screening 2007 HPV/Cotest 2007 Mammogram 2017 Dental Oral Exam 04/04/2018 10/04/2017, , 07/10/2016, Additional history exists Dental Prophylaxis 11/15/2018 05/15/2018, 0 10/04/2017, 01/15/2017, Additional history exists Dental X-Ray: Bitewings 05/16/2019 05/15/20 18, 01/11/2017, 07/10/2016, Additional history exists Dental X-Ray: Full Mouth 05/16/2021 05/15/2018, 06/19 COVID-19 Vaccine ( - season) 2024 07/20/2021, 03/11/2021, 02/17/2021 Influenza Vaccine (#1) 2024 Tobacco Screening 05/28/2024 05/28/2023 Zoster Vaccines (1 of 2) 2027 DTaP/Tdap/Td Vaccines (2 - Td or Tdap) 01/19/2028 01/18/2018 RSV Patients and Patients Aged 60 years or older (1 - 1-dose 75+ series) 2052 HIB Vaccines Aged Out No longer eligi ble based on patient's age to complete this topic HPV Vaccines Aged Out No longer eligi ble based on patient's age to complete this topic Hepatitis A Vaccines Aged Out No long er eligible based on patient's age to complete this topic IPV Vaccines Aged Out No longer eligi ble based on patient's age to complete this topic Meningococcal Vaccine Aged Out No ulises mitchell eligible based on patient's age to complete this topic Pneumococcal Vaccine: Pediatrics (0 to 5 Years) and At-Risk Patients (6 to 49) Years) Aged Out No longer eligible based on patient's age to complete this topic RSV under 20 months Aged Out No longe r eligible based on patient's age to complete this topic Rotavirus Vaccines Aged Out No longer eligible based on patient's age to complete this topic Procedures Procedure Name Priority Date/Time Associated Diagnosis Comments PROPHYLAXIS - ADULT Routine 05/15/2018 1 2:00 AM EDT INTRAORAL - COMPLETE SERIES OF RADIOGRAPHIC IMAGES Routine 05/15/2018 12:00 AM EDT PERIODIC ORAL EVALUATION - ESTABLISHED PATIENT Routine 10/04/2017 12:00 AM EST from Last 3 Months or Most Recently Relevant to Health Maintenance Insurance [employer] STAND ADULT * Guarantor: Josie Hayes Account Type Relation to Patient Date of Phone Billing Address Personal/Family Self [address] [place] [address] * Guarantor: Josie Hayes Account Type Relation to Patient Date of Phone Billing Address Personal/Family Self [address] [place] [address] * Guarantor: Josie Hayes Account Type Relation to Patient Date of Phone Billing Address Personal/Family Self [address] [place] [address]
== END 2024-12-25 12:50 | disposition home or self-care (01) ==
LOC: HO.LAB 12:49
PROVIDERS: PCP Internal Medicine; Referring Provider Nurse Practitioner Psychiatric/Mental Health; Visit Provider Internal Medicine
DX: Z00.00 Encounter for general adult medical examination without abnormal findings (principal); F10.19 Alcohol abuse with unspecified alcohol-induced disorder; R74.01 Elevation of levels of liver transaminase levels; Z68.33 Body mass index [BMI] 33.0-33.9, adult
CPT/HCPCS: 36415; 80053; 80061; 84443; 85025

== ENCOUNTER 2025-01-13 13:20 | Outpatient (REF) | payer MEDICARE, MEDICAID, SELFPAY ==
[2025-01-13 14:38] LABS: Rheumatoid Factor 16.2 IU/mL (<15.0)
[2025-01-13 14:47] LABS: Erythrocyte Sedimentation Rate 9 MM/HR (0-20)
--- OUTSIDE RECORDS SUMMARY | 2025-01-13 15:24 | XMS_ITS | Clinical Summary ---
Author Organization [employer] Address [address] [place] [address] [address] [place] [address] Care Team Providers Care Operation Shift Supervisor Name Role Phone Unavailable Primary Care Provider [...] Most Recently Relevant to Health Maintenance Insurance [facility] MEDICAID STAND ADULT * Guarantor: Josie Hayes Account Type Relation to Patient Date of Phone Billing Address Personal/Family Self [address] [place] [address] * Guarantor: Josie Hayes Account Type Relation to Patient Date of Phone Billing Address Personal/Family Self [address] [place] [id number] * Guarantor: Josie Hayes Account Type Relation to Patient Date of Phone Billing Address Personal/Family Self [address] [place] [address]
[2025-01-16 10:09] LABS: Anti Nuclear Antibody Screen NEGATIVE (NEGATIVE)
[2025-01-16 21:09] LABS: Cyclic Citrullinated Peptide <16 UNITS
== END 2025-01-13 13:21 | disposition home or self-care (01) ==
LOC: HO.LAB 13:20
PROVIDERS: PCP Internal Medicine; Visit Provider Internal Medicine
DX: F10.21 Alcohol dependence, in remission (principal); H81.11 Benign paroxysmal vertigo, right ear; M13.0 Polyarthritis, unspecified; R35.0 Frequency of micturition; R74.01 Elevation of levels of liver transaminase levels
CPT/HCPCS: 36415; 85652; 86038; 86200; 86431

== ENCOUNTER 2025-01-21 08:10 | Outpatient (AMB) | payer MEDICARE, MEDICAID, SELFPAY ==
--- OUTSIDE RECORDS SUMMARY | 2025-01-21 08:19 | XMS_ITS | Clinical Summary ---
Author Organization [employer] Address [address] [facility] 7[address] [place] [address] Care Team Providers Care Registered Nurse Name Role Phone Unavailable Primary Care Provider [...] 05/16/2021 05/15/2018, 06/19 COVID-19 Vaccine ( - 2023- season) 2024 07/20/2021, 03/11/2021, 02/17/2021 Influenza Vaccine [...] Most Recently Relevant to Health Maintenance Insurance * Guarantor: Josie Hayes Account Type Relation to Patient Date of Phone Billing Address Dental Self [address] [place] [address] [facility] MEDICAID STAND ADULT * Guarantor: Josie Hayes Account Type Relation to Patient Date of Phone Billing Address Personal/Family Self [address] [place] [address] * Guarantor: Josie Hayes Account Type Relation to Patient Date of Phone Billing Address Personal/Family Self [address] [place] [address] * Guarantor: Josie Hayes Account Type Relation to Patient Date of Phone Billing Address Personal/Family Self [address] [place] [address] * Guarantor: Josie Hayes Account Type Relation to Patient Date of Phone Billing Address Personal/Family Self [address] [place] [address]
--- NOTE | 2025-01-21 12:20 | MHC.OFFVISWM ---
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 MWL Allergies No Known Allergies Allergy (Verified 01/21/25 12:20) Medication List - Last Reconciled 01/21/25 by Misbah Salmon MD albuterol sulfate 90 mcg/actuation (Ventolin HFA) 2 puffs inhalation Q6H PRN aripiprazole 1 tab PO DAILY hydroxyzine HCl 25 mg PO BEDTIME lorazepam 1 tab PO DAILY PRN omeprazole 20 mg PO DAILY oxcarbazepine 1 tab PO BID paroxetine HCl 10 mg PO DAILY zolpidem (Ambien) 10 mg PO BEDTIME PRN HPI HPI TV WATER TAXI CAPTAIN MWL: Details: Start time: 12.14pm, End time: 12.44pm ?I spent 25 minutes speaking with the patient on the phone plus an additional 5 minutes reviewing and updating records for a total of 30 minutes HPI Comments Details: Previous weight loss efforts: [facility] [facility], self diets and exercise Wakes up: 11am, Sleeps: 9pm Breakfast: (powdered Whey protein shake 30gr of protein) Lunch: 2pm (scrambled eggs) Dinner: 4pm (schaefer soup with vegetables) Snacks: after dinner (yogurt, or cereal) Exercise: has gym membership Beverages: Coffee: (1 cup day with cream and sweetener), tea: (1 cup/day plain), soda/juice: none, ETOH: 1/wk (wine: 1 bottle at a time) [facility] Medical History (Updated 01/21/25 @ 12:24 by Misbah Salmon MD) Insomnia Schizophrenia Mild intermittent asthma GERD (gastroesophageal reflux disease) Bipolar disorder Obesity (BMI 30.0-34.9) Surgical History H/O tubal ligation Family History Father No problems noted. Mother Parkinson disease Son No problems noted. Son No problems noted. Sister No problems noted. Brother No problems noted. Brother No problems noted. Brother No problems noted. Brother No problems noted. Brother No problems noted. Brother No problems noted. Maternal Aunt Diabetes mellitus Social History (Updated 01/13/25 @ 14:04 by Isa Brantley CMA) Alcohol intake: current Alcohol intake frequency: a few times a month Patient Tobacco Use Status: Current someday Tobacco user Telehealth Telehealth Telehealth Platform: Telephone Location of provider rendering services: practice address Location of patient: address on file Patient Identification confirmed using: Name, : Yes Telehealth method: voice only Patient verbally consented to treatment: Yes Patient verbally consented to billing insurance company: Yes Patient informed of any privacy concerns related to visit: Yes Minutes spent on Phone/Video with Pt.: 30 Assessment & Plan Assessment & Plan (1) Obesity (BMI 30.0-34.9): Code(s): E66.9 - Obesity, unspecified Category: Medical Plan: 1. We discussed in detail the available therapeutic options: 1) our lifestyle intervention program that has an average weight loss of 10% in 3 months which would be about 16lbs for her..? 2) Weight loss medications. Her insurance will not cover GLP-1 medications. We could prescribe Phentermine. 3) We also discussed about bariatric surgery but unfortunately she does not meet the criteria.
[2025-01-21 12:37] VITALS: BMI 31.9
== END 2025-01-21 12:45 | disposition home or self-care (01) ==
LOC: HO.HBS 08:10
PROVIDERS: PCP Internal Medicine; Visit Provider Surgery
DX: E66.9 Obesity, unspecified (principal)
CPT/HCPCS: 99203

== ENCOUNTER → 2025-01-21 08:10 | Outpatient (BNVA) | payer MEDICARE, MEDICAID, SELFPAY | PROVIDERS: PCP Internal Medicine; Visit Provider Surgery | DX: Z13.89 Encounter for screening for other disorder (principal) ==

== ENCOUNTER 2025-04-23 13:51 | Outpatient (AMB) | payer MEDICARE, MEDICAID, SELFPAY ==
[2025-04-23 13:54] VITALS: BP 129/64; PULSE 69; BMI 33.9
--- NOTE | 2025-04-23 13:54 | A.OFFVIS_ITS ---
Vital Signs 04/23/25 13:54 Height 5 ft Weight 173 lb 11.588 oz BMI 33.9 BP 129/64 Blood Pressure Location Rt brachial Position Sitting Pulse 69 Intake Visit Reasons: elevated transaminase Intake Note: New patient in office today for elevated transaminase. CC: Patient states that she use to see Dr. Cramer but missed a few appts and she was dismissed from practice. Per patient she's never had a colonoscopy done before. Denies having any GI symptoms or concerns. 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 She is referred by Simin Ureña. PMX Obesity-BMI 33 Asthma History of hepatitis-B infection Depression/PTSD/bipolar/schizophrenia Lumbar radiculopathy Alcohol abuse * SURGICAL HISTORY Tubal ligation * ALLERGIES Sertraline Prazosin Latuda * EpiVax LABS: Laboratory Tests 08/02/23 01/30/24 12/25/24 14:32 13:36 12:58 WBC 5.5 Hgb 12.7 Hct 38.7 Plt Count 285 Estimated GFR > 60 Total Bilirubin 0.3 AST 113 H 38 H 22 ALT 209 H 79 H 22 Alkaline Phosphatase 90 Liver Fibrosis Stage F0 Alpha Fetoprotein 3.8 TSH 1.72 FAISAL Screen Hep Bs Antigen Negative Hep Bs Antibody REACTIVE Hep B Core Total Ab Reactive Hepatitis C Ab (EIA) Nonreactive 01/13/25 13:32 WBC Hgb Hct Plt Count Estimated GFR Total Bilirubin AST ALT Alkaline Phosphatase Liver Fibrosis Stage Alpha Fetoprotein TSH FAISAL Screen NEGATIVE Hep Bs Antigen Hep Bs Antibody Hep B Core Total Ab Hepatitis C Ab (EIA) ULTRASOUND OF THE ABDOMEN WITH ELASTOGRAPHY 01/30/2024 (F-0) FINDINGS: PANCREAS: Normal. The visualized pancreatic head and body are normal in appearance. The remainder of the pancreas is obscured from visualization by the overlying bowel gas. ABDOMINAL AORTA: The proximal, middle, and distal aortic segments are normal in caliber. INFERIOR VENA CAVA: Visualized portions are normal. LIVER: The liver demonstrates normal size, contour and increased echogenicity. No focal lesion or intrahepatic biliary duct dilatation. The right lobe measures 15.5 cm in length. The left lobe measures 12.1 cm in length. Portal flow is towards the liver (hepatopetal). Shear wave liver elastography median stiffness is 1.47 m/s (reference: normal median stiffness is 1.3 m/s or less). IQR/median stiffness to assess sampling precision is 0.16 (reference: good quality data set is IQR/median stiffness of 0.15 or less). GALLBLADDER: Normal. The gallbladder is physiologically distended without evidence of stones, sludge, polyps, wall thickening or pericholecystic fluid. COMMON BILE DUCT: Normal in caliber measuring 0.5 cm in diameter. RIGHT KIDNEY: Normal. No hydronephrosis. No renal calculi or focal parenchymal lesions. The kidney measures 9.7 cm in maximum dimension. LEFT KIDNEY: Normal. No hydronephrosis. No renal calculi or focal parenchymal lesions. The kidney measures 9.2 cm in maximum dimension. SPLEEN: Normal. The spleen measures 8.9 cm in maximum dimension. FREE FLUID: None. US/US abdomen comp w elastography IMPRESSION: 1. There is generalized increase in hepatic echotexture, consistent with fatty infiltration or hepatocellular disease. Please correlate clinically. No focal hepatic mass or intrahepatic biliary dilatation is seen. 2. Liver elastography: Although measurements appear to rule out compensated advanced chronic liver disease, there is statistical variability of the sampling which decreases accuracy. TODAY'S VISIT She was unsure why she was here, our referral stated for transaminitis (which has since resolved) but she says it is for colonoscopy. I suggest that we do a few additional labs to see if we can uncover why this may have been so high in 2022, and we can also order a colonoscopy since she is of screening age. Her father of cirrhosis, but was an alcoholic, no other liver disease. She says she drank a lot when she was younger, but not for many years now it is only occasionally. She had lost some weight in the past years, can't say how much, but is now gaining it all back because of menopause. She thinks that her Hepatitis B infection occurred many years ago prior to 2022. She seems to have natural immunity. To her knowledge, she is not diabetic. Her asthma is well controlled and she denies any cardiac problems. No anes or sed problems. Hep B hx with no viral load. There is no known FHX crc or polyps. ROV 8 weeks. [facility] Medical History (Updated 04/29/25 @ 13:20 by LUI Anderson) Insomnia Schizophrenia Mild intermittent asthma GERD (gastroesophageal reflux disease) Bipolar disorder Obesity (BMI 30.0-34.9) Surgical History H/O tubal ligation Family History Father No problems noted. Mother Parkinson disease Son No problems noted. Son No problems noted. Sister No problems noted. Brother No problems noted. Brother No problems noted. Brother No problems noted. Brother No problems noted. Brother No problems noted. Brother No problems noted. Maternal Aunt Diabetes mellitus Social History (Updated 04/23/25 @ 14:11 by Lauren Shea [facility]) Alcohol intake: current Alcohol intake frequency: a few times a month Patient Tobacco Use Status: Current someday Tobacco user Review of Systems Const Denies fatigue, Denies fever(s), Denies night sweats, Denies poor appetite and Denies weight loss Eyes Reports requires corrective lenses ENT Reports Normal hearing present, Denies dental pain, Denies dysphagia, Denies hearing loss, Denies mouth pain, Denies odynophagia, Denies throat swelling, Denies tongue swelling and Reports other (Dentition adequate) GI Details: Denies abdominal pain, Denies melena, Denies bloating, Denies hematochezia, Denies constipation, Denies GI cramping, Denies dysphagia, Denies excessive flatus, Denies early satiety, Denies heartburn, Denies diarrhea, Denies nausea, Denies odynophagia, Denies vomiting and Denies hematemesis Skin/Breast Denies pruritus, Denies lesions, Denies rash and Denies jaundice Neuro Reports Normal hearing present and Denies Abnormal speech present Endo Denies fatigue Aller/Immun Denies throat swelling and Denies tongue swelling Physical Exam Vital Signs: Last Vital Signs Pulse 69 04/23/25 13:54 BP 129/64 04/23/25 13:54 BMI result Body Mass Index 33.9 Const General: cooperative, no acute distress, well developed and well groomed Nutritional Appearance: well nourished, obese and overweight Orientation/consciousness: oriented to person, oriented to place and oriented to time Limitations: No language barrier, ambulation with cane, ambulation with walker and wheelchair HEENT Head: Yes normocephalic and Yes atraumatic Eyes General: appearance normal, both eyes and all related structures Pupils: Equal, round and reactive pupils present Neck Neck: Yes normal visual inspection and Yes no lymphadenopathy Thyroid: Thyroid normal Resp Effort & Inspection: normal respiratory effort and able to speak in complete sentences Auscultation: clear to auscultation bilaterally Cardio Rate: regular rate Rhythm: regular rhythm Heart sounds: Normal, physiologic split S2 sound present Peripheral pulses: radial pulses present and posterior tibial pulses present GI Inspection: No distended and No Abdominal panniculus present Palpation (GI): Soft to palpation, nontender, no guarding, not rigid, No hepatosplenomegaly present and Hepatosplenomegaly present Percussion: Yes normal to percussion Auscultation: normal bowel sounds Rectal Exam - Female: deferred Skin General skin exam: no rashes or lesions noted, turgor normal, skin not dry, no jaundice, No spider nevi and no striae Rashes: no rashes Nails: normal Neuro General: oriented to person, oriented to place and oriented to time Cranial nerves: Yes Equal, round and reactive pupils present and Yes Normal hearing present Speech: No Abnormal speech present Extrem General: Yes normal to inspection, No clubbing, No cyanosis and No edema Psych Thought process: Normal thought process present and not confabulating Thought content: Normal thought content present Insight: Good insight present (Psych) Judgement: Good judgement present (Psych) Assessment & Plan Assessment & Plan (1) Transaminitis: Code(s): R74.01 - Elevation of levels of liver transaminase levels Category: Medical (2) Obesity (BMI 30.0-34.9): Code(s): E66.9 - Obesity, unspecified Category: Medical (3) History of hepatitis B virus infection: Comment: Negative viral load Code(s): Z86.19 - Personal history of other infectious and parasitic diseases Category: Medical (4) Alcohol abuse: Comment: Patient denies current use except for occasional but admits to heavy use when she was younger Code(s): F10.10 - Alcohol abuse, uncomplicated Category: Social Hx (5) Pre-op examination: Code(s): Z01.818 - Encounter for other preprocedural examination Category: Medical Plan She was unsure why she was here, our referral stated for transaminitis (which has since resolved) but she says it is for colonoscopy. I suggest that we do a few additional labs to see if we can uncover why this may have been so high in 2022, and we can also order a colonoscopy since she is of screening age. Her father of cirrhosis, but was an alcoholic, no other liver disease. She says she drank a lot when she was younger, but not for many years now it is only occasionally. She had lost some weight in the past years, can't say how much, but is now gaining it all back because of menopause. She thinks that her Hepatitis B infection occurred many years ago prior to 2022. She seems to have natural immunity. To her knowledge, she is not diabetic. She is obese and if it is true that she is not consuming alcohol regularly this is likely a metabolic liver aberration, but we will test to rule out any other reversible causes. Her asthma is well controlled and she denies any cardiac problems. No anes or sed problems. Hep B hx with no viral load. There is no known FHX crc or polyps. ROV 8 weeks. Orders: Orders HIV Ab/Ag 04/23/25 R74.01 - Elevation of levels of liver transaminase levels Ceruloplasmin 04/23/25 R74.01 - Elevation of levels of liver transaminase levels Phosphatidylethanol, Blood 04/23/25 R74.01 - Elevation of levels of liver transaminase levels Ferritin 04/23/25 R74.01 - Elevation of levels of liver transaminase levels Smooth Muscle Antibody 04/23/25 R74.01 - Elevation of levels of liver transaminase levels Mitochondrial Antibody 04/23/25 R74.01 - Elevation of levels of liver transaminase levels US abdomen complete 04/23/25 R74.01 - Elevation of levels of liver transaminase levels Colonoscopy - GI Use Only 04/23/25 Z01.818 - Encounter for other preprocedural examination Medications: New sodium,potassium,mag sulfates 17.5-3.13-1.6 gram (Suprep Bowel Prep Kit) 480 mL orally; FOR COLONOSCOPY PREP 354 mL 0RF bisacodyl (Dulcolax (bisacodyl)) 10 mg (2 x 5 mg) PO BEDTIME 4 tabs 0RF 2 days Coding Level of Care Code New Pt Level 3 (24936) Diagnoses Transaminitis R74.01 Obesity (BMI 30.0-34.9) E66.9 History of hepatitis B virus infection Z86.19 Alcohol abuse F10.10 Pre-op examination Z01.818
--- OUTSIDE RECORDS SUMMARY | 2025-04-23 13:59 | XMS_ITS | Clinical Summary ---
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 Name Role Phone Unavailable Primary Care Provider [...] Screening 1975 SDOH Screening 1975 Sigmoidoscopy 1975 Disability Screening 1975 Alcohol/Substance Use Screening 1989 Family Planning [...] Mouth 05/16/2021 05/15/2018, 06/19 COVID-19 Vaccine ( season) 2024 07/20/2021, 03/11/2021, 02/17/2021 Tobacco Screening 05/28/2024 05/28/2023 Influenza Vaccine (#1) 2025 Zoster Vaccines (1 of 2) 2027 DTaP/Tdap/Td [...] patient's age to complete this topic Meningococcal B Vaccine Aged Out No l onger eligible based on patient's age to complete this topic Meningococcal Vaccine Aged Out No ulises mitchell eligible based on patient's age to complete this topic Pneumococcal Vaccine: Pediatrics (0 to 5 Years) and At-Risk Patients (6 to 49) Years Aged Out No longer eligible based on [...] Most Recently Rele[place] [address] [facility] * Guarantor: Josie Hayes Account Type Relation to Patient Date of Phone Billing Address Personal/Family Self [address] [place] [address] * Guarantor: Josie Hayes Account Type Relation to Patient Date of Phone Billing Address Personal/Family Self [address] [place] [address] * Guarantor: Josie Hayes Account Type Relation to Patient Date of Phone Billing Address Personal/Family Self [address] [place] [address]
== END 2025-04-23 15:09 | disposition home or self-care (01) ==
LOC: HO.HGI 13:52
PROVIDERS: PCP Internal Medicine; Visit Provider Nurse Practitioner
DX: Z01.818 Encounter for other preprocedural examination (principal); Z12.11 Encounter for screening for malignant neoplasm of colon; R74.01 Elevation of levels of liver transaminase levels; E66.9 Obesity, unspecified; Z86.19 Personal history of other infectious and parasitic diseases; F10.10 Alcohol abuse, uncomplicated
CPT/HCPCS: 99024

== ENCOUNTER → 2025-04-23 13:51 | Outpatient (BNVA) | payer MEDICARE, MEDICAID, SELFPAY | PROVIDERS: PCP Internal Medicine; Visit Provider Nurse Practitioner | DX: Z01.818 Encounter for other preprocedural examination (principal); R74.01 Elevation of levels of liver transaminase levels; E66.9 Obesity, unspecified; F10.10 Alcohol abuse, uncomplicated; Z86.19 Personal history of other infectious and parasitic diseases; Z68.33 Body mass index [BMI] 33.0-33.9, adult | CPT/HCPCS: 99212 ==

== ENCOUNTER 2025-05-01 10:34 | Outpatient (REF) | payer MEDICARE, MEDICAID, SELFPAY ==
--- OUTSIDE RECORDS SUMMARY | 2025-05-01 10:40 | XMS_ITS | Clinical Summary ---
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 Role Phone Unavailable Primary Care Provider [...] Relevant [place] [address] [facility] * Guarantor: Josie Hayes Account Type Relation to Patient Date of Phone Billing Address Personal/Family Self [address] [place] [address] * Guarantor: Josie Hayes Account Type Relation to Patient Date of Phone Billing Address Personal/Family Self [address] [place] [address] * Guarantor: Josie Hayes Account Type Relation to Patient Date of Phone Billing Address Personal/Family Self [address] [place] [address]
[2025-05-01 12:10] LABS: Ferritin 90 ng/mL (10-250); HIV Num 1 0.05 S/CO (0.00-0.99)
[2025-05-07 08:53] LABS: Phosphatidylethanol 16:0-18:1 >400; Phosphatidylethanol 16:0-18:2 >400
== END 2025-05-01 10:35 | disposition home or self-care (01) ==
LOC: HO.LAB 10:34
PROVIDERS: PCP Internal Medicine; Visit Provider Nurse Practitioner
DX: Z51.81 Encounter for therapeutic drug level monitoring (principal); Z11.4 Encounter for screening for human immunodeficiency virus [HIV]; R74.01 Elevation of levels of liver transaminase levels
CPT/HCPCS: 36415; 80321; 82390; 82728; 86015; 86381; 87389

== ENCOUNTER 2025-06-18 09:39 | Outpatient (REF) | payer OTHER, SELFPAY ==
--- NOTE | ~2025-06-18 | US_ITS ---
CLINICAL HISTORY: R74.01 - Elevation of levels of liver transaminase levels US abdomen complete Comparison: 01/30/2024 Findings: The visualized pancreas is normal. The aorta and inferior vena cava are normal caliber. The appearance of the liver suggests fatty infiltration. There is intrahepatic bile duct dilatation. The common duct is 5.0 mm in diameter. The gallbladder is normal. There is no sonographic Cherry sign. The main portal vein is antegrade. The right kidney is 9.3 cm in length. The left kidney is 8.8 cm in length. The spleen is normal. No ascites. IMPRESSION: 1. Hepatic steatosis. 2. Intrahepatic ductal dilatation, etiology indeterminate. Appropriate follow-up recommended possibly with MRI. This document has been electronically signed by: Jerry Amaral MD on 06/19/2025 09:26:18
--- OUTSIDE RECORDS SUMMARY | 2025-06-18 10:41 | XMS_ITS | Clinical Summary ---
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 Name Role Phone Unavailable Primary Care Provider [...] Dental X-Ray: Full Mouth 05/16/2021 05/15/2018, 06/19 Tobacco Screening 05/28/2024 05/28/2023 COVID-19 Vaccine ( season) 2025 07/20/2021, 03/11/2021, 02/17/2021 Influenza Vaccine (#1) 2025 Zoster Vaccines (1 [...] Relevant [place] [address] [facility] * Guarantor: Josie Hayes Account Type Relation to Patient Date of Phone Billing Address Personal/Family Self [address] [place] [address] * Guarantor: Josie Hayes Account Type Relation to Patient Date of Phone Billing Address Personal/Family Self [address] [place] [address] * Guarantor: Josie Hayes Account Type Relation to Patient Date of Phone Billing Address Personal/Family Self [address] [place] [address]
== END 2025-06-18 09:40 | disposition home or self-care (01) ==
LOC: HO.US 09:39
PROVIDERS: PCP Internal Medicine; Visit Provider Nurse Practitioner
DX: R74.01 Elevation of levels of liver transaminase levels (principal)
CPT/HCPCS: 76700

== ENCOUNTER → 2025-06-18 09:40 | Outpatient (BNV) | payer OTHER, SELFPAY | PROVIDERS: PCP Internal Medicine; Visit Provider Specialist | DX: K76.0 Fatty (change of) liver, not elsewhere classified (principal) | CPT/HCPCS: 76700 ==

== ENCOUNTER 2025-06-19 11:18 | Outpatient (AMB) | payer OTHER, MEDICAID, SELFPAY ==
[2025-06-19 11:23] VITALS: BP 138/60; BMI 33.4
--- NOTE | 2025-06-19 11:23 | A.OFFVIS_ITS ---
Vital Signs 06/19/25 11:23 Height 5 ft Weight 171 lb 1.259 oz BMI 33.4 BP 138/60 Blood Pressure Location Lt brachial Position Sitting Intake Visit Reasons: transaminitis, CRC screening Intake Note: Josie presents in of[facility]ice today in follow up of labs and US. 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 Accompanied by: Self / Same As Patient Allergies No Known Allergies Allergy (Verified 06/19/25 11:30) HPI HPI transaminitis, CRC screening: Details: Assessment & Plan (1) Transaminitis: Code(s): R74.01 - Elevation of levels of liver transaminase levels Category: Medical (2) Obesity (BMI 30.0-34.9): Code(s): E66.9 - Obesity, unspecified Category: Medical (3) History of hepatitis B virus infection: Comment: Negative viral load Code(s): Z86.19 - Personal history of other infectious and parasitic diseases Category: Medical (4) Alcohol abuse: Comment: Patient denies current use except for occasional but admits to heavy use when she was younger Code(s): F10.10 - Alcohol abuse, uncomplicated Category: Social Hx (5) Pre-op examination: Code(s): Z01.818 - Encounter for other preprocedural examination Category: Medical Plan She was unsure why she was here, our referral stated for transaminitis (which has since resolved) but she says it is for colonoscopy. I suggest that we do a few additional labs to see if we can uncover why this may have been so high in 2022, and we can also order a colonoscopy since she is of screening age. Her father of cirrhosis, but was an alcoholic, no other liver disease. She says she drank a lot when she was younger, but not for many years now it is only occasionally. She had lost some weight in the past years, can't say how much, but is now gaining it all back because of menopause. She thinks that her Hepatitis B infection occurred many years ago prior to 2022. She seems to have natural immunity. To her knowledge, she is not diabetic. She is obese and if it is true that she is not consuming alcohol regularly this is likely a metabolic liver aberration, but we will test to rule out any other reversible causes. Her asthma is well controlled and she denies any cardiac problems. No anes or sed problems. Hep B hx with no viral load. There is no known FHX crc or polyps. ROV 8 weeks. Orders: Orders HIV Ab/Ag 04/23/25 R74.01 - Elevation of levels of liver transaminase levels Ceruloplasmin 04/23/25 R74.01 - Elevation of levels of liver transaminase levels Phosphatidylethanol, Blood 04/23/25 R74.01 - Elevation of levels of liver transaminase levels Ferritin 04/23/25 R74.01 - Elevation of levels of liver transaminase levels Smooth Muscle Antibody 04/23/25 R74.01 - Elevation of levels of liver transaminase levels Mitochondrial Antibody 04/23/25 R74.01 - Elevation of levels of liver transaminase levels US abdomen complete 04/23/25 R74.01 - Elevation of levels of liver transaminase levels Colonoscopy - GI Use Only 04/23/25 Z01.818 - Encounter for other preprocedural examination Medications: New sodium,potassium,mag sulfates 17.5-3.13-1.6 gram (Suprep Bowel Prep Kit) 480 mL orally; FOR COLONOSCOPY PREP 354 mL 0RF bisacodyl (Dulcolax (bisacodyl)) 10 mg (2 x 5 mg) PO BEDTIME 4 tabs 0RF 2 days LABS: Laboratory Tests 05/01/25 10:51 Ferritin 90 Ceruloplasmin 37 Anti-Mitochondrial Ab NEGATIVE Anti-Smooth Muscle Ab <20 PEth 16:0/18.1 (POPEth) >400 PEth 16:0/18.2 (PLPEth) >400 HIV 1&2 Ab/P24 Ag 4thGn Nonreactive ULTRASOUND OF THE ABDOMEN 06/19/2025 Findings: The visualized pancreas is normal. The aorta and inferior vena cava are normal caliber. The appearance of the liver suggests fatty infiltration. There is intrahepatic bile duct dilatation. The common duct is 5.0 mm in diameter. The gallbladder is normal. There is no sonographic Cherry sign. The main portal vein is antegrade. The right kidney is 9.3 cm in length. The left kidney is 8.8 cm in length. The spleen is normal. No ascites. IMPRESSION: 1. Hepatic steatosis. 2. Intrahepatic ductal dilatation, etiology indeterminate. Appropriate follow-up recommended possibly with MRI. COLONOSCOPY BIOPSY TODAY'S VISIT [facility] Medical History Insomnia Schizophrenia Mild intermittent asthma GERD (gastroesophageal reflux disease) Bipolar disorder Obesity (BMI 30.0-34.9) Surgical History H/O tubal ligation Family History (Reviewed 06/19/25 @ 11: by SHAISTA Cowart) Father No problems noted. Mother Parkinson disease Son No problems noted. Son No problems noted. Sister No problems noted. Brother No problems noted. Brother No problems noted. Brother No problems noted. Brother No problems noted. Brother No problems noted. Brother No problems noted. Maternal Aunt Diabetes mellitus Social History Alcohol intake: current Alcohol intake frequency: a few times a month Patient Tobacco Use Status: Current someday Tobacco user Review of Systems Const Denies fatigue, Denies fever(s), Denies night sweats, Denies poor appetite and Denies weight loss ENT Reports Normal hearing present, Denies dental pain, Denies dysphagia, Denies hearing loss, Denies mouth pain, Denies odynophagia, Denies throat swelling, Denies tongue swelling and Reports other (Dentition adequate) Card Reports no additional complaints Resp Reports no additional complaints GI Details: Denies abdominal pain, Denies melena, Denies bloating, Denies hematochezia, Denies constipation, Denies GI cramping, Denies dysphagia, Denies excessive flatus, Denies early satiety, Denies heartburn, Denies diarrhea, Denies nausea, Denies odynophagia, Denies vomiting and Denies hematemesis Skin/Breast Denies pruritus, Denies lesions, Denies rash and Denies jaundice Neuro Reports Normal hearing present and Denies Abnormal speech present Endo Denies fatigue Aller/Immun Denies throat swelling and Denies tongue swelling Physical Exam Vital Signs: Last Vital Signs BP 138/60 06/19/25 11:23 BMI result Body Mass Index 33.4 Const General: cooperative, no acute distress, well developed and well groomed Nutritional Appearance: well nourished and obese Orientation/consciousness: oriented to person, oriented to place and oriented to time Limitations: No language barrier HEENT Head: Yes normocephalic and Yes atraumatic Eyes General: appearance normal, both eyes and all related structures Pupils: Equal, round and reactive pupils present Neck Neck: Yes normal visual inspection and Yes no lymphadenopathy Thyroid: Thyroid normal Resp Effort & Inspection: normal respiratory effort and able to speak in complete sentences Auscultation: clear to auscultation bilaterally Cardio Rate: regular rate Rhythm: regular rhythm Heart sounds: Normal, physiologic split S2 sound present Peripheral pulses: radial pulses present and posterior tibial pulses present GI Inspection: No distended, Yes Abdominal panniculus present and Yes obesity Palpation (GI): Soft to palpation, nontender, no guarding, not rigid and No hepatosplenomegaly present Percussion: Yes normal to percussion Auscultation: normal bowel sounds Rectal Exam - Female: deferred Skin General skin exam: no rashes or lesions noted, turgor normal, skin not dry, no jaundice, No spider nevi and no striae Rashes: no rashes Nails: normal Neuro General: oriented to person, oriented to place and oriented to time Cranial nerves: Yes Equal, round and reactive pupils present and Yes Normal hearing present Speech: No Abnormal speech present Extrem General: Yes normal to inspection, No clubbing, No cyanosis and No edema Psych Appearance: grossly normal and well kempt Mental Status: mental status grossly normal Speech and movement: Normal speech and movement present Affect: normal affect Attitude: cooperative Thought process: Normal thought process present and not confabulating Thought content: Normal thought content present Insight: Good insight present (Psych) Judgement: Good judgement present (Psych) Assessment & Plan Assessment & Plan (1) Transaminitis: Comment: BASELINE LABS 12/25/24 Plt Count 285 Estimated GFR > 60 Total Bilirubin 0.3 AST 113 H 38 H 22 ALT 209 H 79 H 22 Alkaline Phosphatase 90 Liver Fibrosis Stage F0 Alpha Fetoprotein 3.8 FAISAL Screen Hep Bs Antigen Negative Hep Bs Antibody REACTIVE Hep B Core Total Ab Reactive Hepatitis C Ab (EIA) Nonreactive FAISAL Screen NEGATIVE Hep Bs Antigen Hep Bs Antibody Hep B Core Total Ab Hepatitis C Ab (EIA) Ferritin 90 Ceruloplasmin 37 Anti-Mitochondrial Ab NEGATIVE Anti-Smooth Muscle Ab <20 PEth 16:0/18.1 (POPEth) >400 PEth 16:0/18.2 (PLPEth) >400 HIV 1&2 Ab/P24 Ag 4thGn Nonreactive CURRENT LABS ULTRASOUND OF THE ABDOMEN 06/19/2025 Findings: The visualized pancreas is normal. The aorta and inferior vena cava are normal caliber. The appearance of the liver suggests fatty infiltration. There is intrahepatic bile duct dilatation. The common duct is 5.0 mm in diameter. The gallbladder is normal. There is no sonographic Cherry sign. The main portal vein is antegrade. The right kidney is 9.3 cm in length. The left kidney is 8.8 cm in length. The spleen is normal. No ascites. IMPRESSION: 1. Hepatic steatosis. 2. Intrahepatic ductal dilatation, etiology indeterminate. Appropriate follow-up recommended possibly with MRI. Code(s): R74.01 - Elevation of levels of liver transaminase levels Category: Medical (2) Alcohol abuse: Comment: Patient denies current use except for occasional but admits to heavy use when she was younger Code(s): F10.10 - Alcohol abuse, uncomplicated Category: Social Hx (3) BMI 31.0-31.9,adult: Code(s): Z68.31 - Body mass index [BMI] 31.0-31.9, adult Category: Medical (4) History of hepatitis B virus infection: Comment: Negative viral load Code(s): Z86.19 - Personal history of other infectious and parasitic diseases Category: Medical Plan - The patient is a 49-year-old female presenting with a history of Non-alcoholic Fatty Liver Disease. - She reports a previous instance of liver failure which she attributes to genetic predispositions and a past instance of moderate alcohol consumption, now ceased. - No autoimmune or infectious liver disorders were found, so this is likely metabolic due to the fact that she is overweight. However, her Peth does show significant alcohol intake so I need to keep an awareness that she may be drinking more than she admits to. She was thoroughly educated that complete abstinence from alcohol would be best given her metabolic profile. She admits that this is what she is going to do. - The patient denies having diabetes, a neal risk factor for progressive liver conditions. - Her current exercise regimen is positively impacting her overall health, potentially mitigating some symptoms associated with liver conditions. - Mental health medications for schizophrenia, bipolar disorder, and PTSD are not contributors to her liver disease but require monitoring for other potential impacts. Return office visit in 6 months COLONOSCOPY BIOPSY Coding Level of Care Code Est Pt Level 4 (40928) Diagnoses Transaminitis R74.01 Alcohol abuse F10.10 BMI 31.0-31.9,adult Z68.31 History of hepatitis B virus infection Z86.19 Time Spent (min) 35
--- OUTSIDE RECORDS SUMMARY | 2025-06-19 12:28 | XMS_ITS | Clinical Summary ---
Author Organization [employer] Address [address] [place] [address] Care Team Providers Care Fiber Optic Assembler Name Role Phone Unavailable Primary Care Provider [...] Relevant [place] [address] [facility] * Guarantor: Josie Hayes Account Type Relation to Patient Date of Phone Billing Address Personal/Family Self [address] [place] [address] * Guarantor: Josie Hayes Account Type Relation to Patient Date of Phone Billing Address Personal/Family Self [address] [place] [address] * Guarantor: Josie Hayes Account Type Relation to Patient Date of Phone Billing Address Personal/Family Self [address] [place] [address]
== END 2025-06-19 11:58 | disposition home or self-care (01) ==
PROVIDERS: PCP Internal Medicine; Visit Provider Nurse Practitioner
DX: R74.01 Elevation of levels of liver transaminase levels (principal); F10.10 Alcohol abuse, uncomplicated; Z68.31 Body mass index [BMI] 31.0-31.9, adult; Z86.19 Personal history of other infectious and parasitic diseases
CPT/HCPCS: 99214

== ENCOUNTER → 2025-06-19 11:18 | Outpatient (BNVA) | payer OTHER, SELFPAY | PROVIDERS: PCP Internal Medicine; Visit Provider Nurse Practitioner | DX: F10.10 Alcohol abuse, uncomplicated (principal); R74.01 Elevation of levels of liver transaminase levels; Z68.31 Body mass index [BMI] 31.0-31.9, adult; Z86.19 Personal history of other infectious and parasitic diseases | CPT/HCPCS: 99212 ==

== ENCOUNTER 2025-06-21 09:04 | Emergency (ER) | payer OTHER, SELFPAY ==
[2025-06-21 09:09] VITALS: BP 131/60; PULSE 75; RESP 18; TEMP 36.6; O2SAT 97; BMI 33.5
[2025-06-21 09:38] VITALS: BP 115/60; PULSE 63; RESP 18; O2SAT 99
--- OUTSIDE RECORDS SUMMARY | 2025-06-21 09:39 | XMS_ITS | Clinical Summary ---
Author Organization [employer] Address [address] [place] [address] Care Team Providers Care Snow Fence Erector Name Role Phone Unavailable Primary Care Provider [...] Relevant [place] [address] [facility] * Guarantor: Josie Hayes Account Type Relation to Patient Date of Phone Billing Address Personal/Family Self [address] [place] [address] * Guarantor: Josie Hayes Account Type Relation to Patient Date of Phone Billing Address Personal/Family Self [address] [place] [address] * Guarantor: Josie Hayes Account Type Relation to Patient Date of Phone Billing Address Personal/Family Self [address] [place] [address]
--- NOTE | 2025-06-21 09:41 | PC.NURSE ---
49 F presents to ED with dizziness, light headedness, and feeling like she is going to pass out since waking up this morning. Pt denies CP or SOB, denies any pain. RR even and unlabored, no visible s/s of distress. A+OX4, calm, cooperative, ambulatory.
--- NOTE | 2025-06-21 09:42 | ECG_ITS ---
Test Reason : DIZZY Blood Pressure : */* mmHG Vent. Rate : 62 BPM Atrial Rate : 62 BPM P-R Int : 130 ms QRS Dur : 74 ms QT Int : 418 ms P-R-T Axes : 30 54 21 degrees QTcB Int : 424 ms Normal sinus rhythm Cannot rule out Anterior infarct , age undetermined Abnormal ECG When compared with ECG of 31-May-2024 01:26, No significant change was found Referred By: Generic ED Physician Electronically Signed By: NAHID MCWILLIAMS MD
[2025-06-21 09:44] LABS: MANUAL DIFF FLAG NO
[2025-06-21 09:45] LABS: Hematocrit 38.7 % (37.0-47.0); Hemoglobin 12.6 g/dl (12.0-16.0); Imm Gran Abs Auto 0.04 X10*3/uL (0.00-0.03); Imm Gran Pct Auto 0.6 % (0.0-0.4); Lymphocytes Absolute Auto 1.8 X10*3/uL (1.2-4.9); Mean Corpuscular HGB Conc 32.6 g/dl (31.0-35.0); Mean Corpuscular Hemoglobin 30.4 pg (27.0-33.0); Mean Corpuscular Volume 93.3 fL (80.0-98.0); NRBC Abs Auto 0.000 X10*3/uL (0.0-0.012); NRBC Pct Auto 0.0 /100WBC (0.0-0.2); Platelet Count 284 X10*3/uL (160-400); Red Blood Count 4.15 X10*6/uL (4.20-5.50); White Blood Count 7.0 X10*3/uL (4.8-10.8)
--- NOTE | 2025-06-21 09:53 | ED.DIZZY ---
HPI - Dizziness General Chief Complaint: Dizziness Stated Complaint: Dizziness Time Seen by Provider: 06/21/25 09:32 Source: patient Mode of arrival: ambulatory Limitations: no limitations History of Present Illness ED Provider: Fely Pedroza PA-C HPI Narrative: Patient seeks medical attention today for evaluation of dizziness. She reports that approximately 05:00 when she woke up this morning as soon as she turned over she instantly felt dizzy it lasted for several minutes to an hour when she got up it was no worse lying down made it no better it is especially worse with positional head movement. She denies any recent falls trauma paresthesias weakness or difficulty with concentrating or controlling her limbs. She feels slightly nauseous with the dizziness if she remains completely still it is not reproducible. She has no prior history of vertigo or stroke. She is denying any prodromal or current symptoms of palpitations shortness of breath or chest pain. She reports eating and drinking and voiding regularly. No hearing loss tinnitus or headache. Related Data Home Medications ?Medication ?Instructions ?Recorded ?Confirmed omeprazole 20 mg capsule,delayed 20 mg PO DAILY 07/23/20 01/21/25 release lorazepam 0.5 mg tablet 1 tab PO DAILY PRN anxiety 04/23/22 01/21/25 oxcarbazepine 600 mg tablet 1 tab PO BID 04/23/22 01/21/25 paroxetine HCl 10 mg tablet 10 mg PO DAILY 01/21/25 01/21/25 zolpidem 10 mg tablet (Ambien) 10 mg PO BEDTIME PRN 01/21/25 01/21/25 paliperidone 3 mg tablet,extended 3 mg PO QAM 04/23/25 release 24 hr (Invega) Previous Rx's ?Medication ?Instructions ?Recorded albuterol sulfate 90 mcg/actuation 2 puff inhalation Q6H PRN 12/21/20 aerosol inhaler (Ventolin HFA) shortness of breath or wheezing #8.5 grams bisacodyl 5 mg tablet,delayed 10 mg (2 x 5 mg) PO BEDTIME 2 days 04/23/25 release (Dulcolax (bisacodyl)) #4 tabs sodium,potassium,mag sulfates 17.5 480 ml PO .COMPLEX #354 mL 04/23/25 gram-3.13 gram-1.6 gram oral soln (Suprep Bowel Prep Kit) meclizine 25 mg tablet 25 mg PO TID PRN dizziness #21 tabs 06/21/25 Allergies Allergy/AdvReac Type Severity Reaction Status Date / Time No Known Allergies Allergy Verified 06/21/25 09:12 Review of Systems Review of Systems: Yes all other systems are reviewed and are negative PMFSH Past Medical History Attestation statement: The following information was validated with the patient. Source: old records reviewed and nursing notes reviewed Medical History Insomnia Schizophrenia Mild intermittent asthma GERD (gastroesophageal reflux disease) Bipolar disorder Obesity (BMI 30.0-34.9) Surgical History H/O tubal ligation Family History Family History Father No problems noted. Mother Parkinson disease Son No problems noted. Son No problems noted. Sister No problems noted. Brother No problems noted. Brother No problems noted. Brother No problems noted. Brother No problems noted. Brother No problems noted. Brother No problems noted. Maternal Aunt Diabetes mellitus Social History Social History Alcohol intake: current Alcohol intake frequency: a few times a month Patient Tobacco Use Status: Current someday Tobacco user Physical Exam Exam: Exam: General: Appears in no acute distress, appears well nourished body habitus is obese, appears stated age. No septic or ill-appearing. Vitals reviewed normal, PMH/Social and Surgical hx reviewed including allergies and current medications. - reviewed for prior visits here Head: Normocephalic, no obvious trauma or skin lesions noted. Eyes: EOMI, EOMs reproduce dizziness non directions no vertical nystagmus fatigable nystagmus bilaterally, negative cover uncover test ENMT: moist oral mucosa, nasal turbinates normal posterior pharynx normal, tympanic membranes clear canals clear Neck: trachea midline no lymphadenopathy Cardiovascular: peripheral perfusion normal, Regular heart rate regular rhythm Respiratory: no respiratory distress lungs clear to auscultation bilaterally no chest wall tenderness Abdomen: nondistended but protuberant Extremities: warm and moving without difficulty unless otherwise detailed in physical exam if applicable. Psych: Cooperative and calm Neuro: Cranial nerves II through XII intact, speech fluent and appropriate, no [id number]-ughjtb ataxia, no dsji-as-mkug ataxia, no palmar drift, strength 5+ throughout, sensory intact throughout to soft touch and equal bilaterally Vital Signs: Vital Signs: Last Vital Signs Temp 0 F L 06/21/25 11:18 Pulse 54 06/21/25 11:18 Resp 18 06/21/25 11:18 BP 130/69 06/21/25 11:18 Pulse Ox 100 06/21/25 11:18 O2 Del Method Room Air 06/21/25 11:18 BMI result Body Mass Index 33.5 Medications Administered Discontinued Medications Generic Name Dose Route Start Last Admin Trade Name Freq PRN Reason Stop Dose Admin Meclizine HCl 25 mg 06/21/25 09:55 06/21/25 10:28 Meclizine Hcl 25 Mg Tablet PO 06/21/25 09:56 25 mg ONCE ONE Administration Medical Decision Making Medical Decision Making MDM Narrative: Symptoms ARE related to position change. No melena or BRBPR. No new genitourinary bleeding. They have had no sick contacts, fever, neck stiffness, rash, or seizure. The patient has no recent history of head trauma and is not taking any anticoagulation. Patient without chest pain. Denies any recent immobility, surgery, unilateral leg swelling, or prior PE. Patient without any prodromal symptoms of SOB and no h/o CHF. Differential Diagnosis Differential Diagnoses: The differential diagnosis associated with the presentation includes Admission/Observation Consideration of admission/observation: Escalation of care including admission/observation considered Lab Data [facility] Lab Attestation statement: I reviewed the patient's lab results. 06/21/25 09:31 06/21/25 09:31 Labs: Lab Results 06/21/25 06/21/25 Range/Units 09:31 10:32 WBC 7.0 (4.8-10.8) X10*3/uL RBC 4.15 L (4.20-5.50) X10*6/uL Hgb 12.6 (12.0-16.0) g/dl Hct 38.7 (37.0-47.0) % MCV 93.3 (80.0-98.0) fL MCH 30.4 (27.0-33.0) pg MCHC 32.6 (31.0-35.0) g/dl RDW 12.7 (11.0-16.0) % Plt Count 284 (160-400) X10*3/uL MPV 9.8 (9.4-12.3) fL Immature Gran % (Auto) 0.6 H (0.0-0.4) % Neut % (Auto) 60.7 (45-73) % Lymph % (Auto) 25.5 (20-40) % [place] % (Auto) 10.6 (2-11) % Eos % (Auto) 2.0 (0-4) % Baso % (Auto) 0.6 (0-2) % Lymph # (Auto) 1.8 (1.2-4.9) X10*3/uL [place] # (Auto) 0.7 (0.1-1.2) X10*3/uL Eos # (Auto) 0.1 (0.0-0.4) X10*3/uL Baso # (Auto) 0.0 (0.0-0.2) X10*3/uL Abs Immat Gran (auto) 0.04 H (0.00-0.03) X10*3/uL Absolute Neuts (auto) 4.2 (2.0-8.3) x10*3/uL Absolute Nucleated RBC 0.000 (0.0-0.012) X10*3/uL Nucleated RBC % (auto) 0.0 (0.0-0.2) /100WBC Sodium 139 (135-145) mmol/L Potassium 4.5 (3.3-5.1) mmol/L Chloride 107 (96-108) mmol/L Carbon Dioxide 25 (22-29) mmol/L Anion Gap 12 (12-20) BUN 22 H (9-16) mg/dL Creatinine 0.64 (0.5-1.4) mg/dL Estim Creat Clear Calc 100.2 Estimated GFR > 60 POC Glucose 106 (60-115) mg/dL Random Glucose 91 (60-115) mg/dL Calcium 9.3 (8.4-10.2) mg/dL Independent Interpretation I performed an independent interpretation of an: EKG Interpretation: no malignant arrhythmia or STEMI, NSR Tests considered The following testing was considered but not selected: WOuld have considered CT head if neuro exam was nonfocal or suggestive of central dizziness etiology Prescription Management I considered prescription management with: Other Chronic Conditions Patient?s care impacted by: Other Social Determinants Patient?s care significantly limited by Social Determinants of Health including: Low income, Alcoholism and drug addiction in family, Problems related to primary support group and Other Social Determinant of Health Discharge Plan Discharge Clinical Impression: Vertigo Patient Disposition: Home, Self-Care Instructions: Vertigo (ED) Additional Instructions: You were seen in the emergency department today following episode of dizziness. On physical exam there dizziness was reproduced with quick head movements as well as extraocular eye movements. This is most consistent with a benign cause of peripheral vertigo. Most likely from a dislodged otolith. You have no indication of any infection. You neuro exam is normal. We checked for any types of anemia or electrolyte imbalance but labs are reassuring and normal you have stated after filling the meclizine that you are feeling much better. Please change position slowly and stay hydrated. You might require referral to physical therapist for Padmini maneuvers if this continues. You may seek this through your primary care provider. I hope you continue to feel well! please return to the emergency department for worsening symptoms or concerns. Prescriptions: New meclizine 25 mg tablet 25 mg PO TID PRN (Reason: dizziness) Qty: 21 0RF No Action albuterol sulfate [Ventolin HFA] 90 mcg/actuation HFA aerosol inhaler 2 puff inhalation Q6H PRN (Reason: shortness of breath or wheezing) Qty: 8.5 2RF lorazepam 0.5 mg tablet 1 tab PO DAILY PRN (Reason: anxiety) oxcarbazepine 600 mg tablet 1 tab PO BID omeprazole 20 mg capsule,delayed release(DR/EC) 20 mg PO DAILY paliperidone [Invega] 3 mg tablet extended release 24hr 3 mg PO QAM bisacodyl [Dulcolax (bisacodyl)] 5 mg tablet,delayed release (DR/EC) 10 mg PO BEDTIME 2 Days Qty: 4 0RF sodium,potassium,mag sulfates [Suprep Bowel Prep Kit] 17.5-3.13-1.6 gram recon soln 480 ml PO .COMPLEX Qty: 354 0RF Rx Instructions: 480 mL orally; FOR COLONOSCOPY PREP paroxetine HCl 10 mg tablet 10 mg PO DAILY zolpidem [Ambien] 10 mg tablet 10 mg PO BEDTIME PRN Referrals: Hilary Malone MD [Primary Care Provider, Internal Medicine] Referral Note: ER follow up Interventions: ED Discharge Assessment Last Done: 06/21/25 11:18 Discharge Date/Time: 06/21/25 11:19 Print Language: Slovak
[2025-06-21 10:22] LABS: Anion Gap 12 (12-20); Blood Urea Nitrogen 22 mg/dL (9-16); Calcium 9.3 mg/dL (8.4-10.2); Carbon Dioxide 25 mmol/L (22-29); Chloride 107 mmol/L (96-108); Creatinine Clr Calc Pharmacy 100.2; Estimated Glomerular Filt Rate > 60; Potassium 4.5 mmol/L (3.3-5.1); Sodium 139 mmol/L (135-145)
[2025-06-21 10:42] LABS: Glucose, Whole Blood 106 mg/dL (60-115)
[2025-06-21 11:18] VITALS: BP 130/69; PULSE 54; RESP 18; TEMP -17.7; TEMP 0; O2SAT 100
== END 2025-06-21 11:19 | disposition home or self-care (01) ==
PROVIDERS: Emergency Provider Emergency Medicine; PCP Internal Medicine
DX: R42 Dizziness and giddiness (principal); R11.0 Nausea; R94.31 Abnormal electrocardiogram [ECG] [EKG]; Z79.899 Other long term (current) drug therapy; F17.210 Nicotine dependence, cigarettes, uncomplicated
CPT/HCPCS: 36415; 80048; 82947; 85025; 93005; 99283; 99285

== ENCOUNTER → 2025-06-21 09:42 | Outpatient (BNV) | payer OTHER, SELFPAY | PROVIDERS: Emergency Provider Emergency Medicine; PCP Internal Medicine; Visit Provider Internal Medicine Cardiovascular Disease | DX: R94.31 Abnormal electrocardiogram [ECG] [EKG] (principal); R42 Dizziness and giddiness | CPT/HCPCS: 93010 ==